=== PATIENT | female | born 1945 | race Caucasian/White ===

== ENCOUNTER 2024-09-28 13:54 | Emergency (ER) | payer MEDICARE, OTHER, SELFPAY ==
[2024-09-28] VITALS (7 sets, daily range): BP systolic 101–141; BP diastolic 53–72; PULSE 72–87; RESP 13–20; TEMP 36.8–37.1; O2SAT 95–98; BMI 23.6
--- NOTE | 2024-09-28 14:55 | CT_ITS ---
PROCEDURE INFORMATION: Exam: CTA Abdomen and Pelvis With Contrast Exam date and time: 09/28/2024 4:50 PM Age: 79 years old Clinical indication: Other: Melena, abdominal pain, diarrhea, n/v TECHNIQUE: Imaging protocol: Computed tomographic angiography of the abdomen and pelvis with contrast. Exam focused on the arteries. 3D rendering (Not supervised by radiologist): MIP and/or 3D reconstructed images were created by the technologist. Radiation optimization: All CT scans at this facility use at least one of these dose optimization techniques: automated exposure control; mA and/or kV adjustment per patient size (includes targeted exams where dose is matched to clinical indication); or iterative reconstruction. Contrast material: ISO 370; Contrast volume: 80 ml; Contrast route: INTRAVENOUS (IV); COMPARISON: No relevant prior studies available. FINDINGS: Limitations: Evaluation of the pelvis is very limited by streak artifact. Aorta: No aortic aneurysm. No aortic dissection. Celiac trunk and mesenteric arteries: No occlusion or significant stenosis. Renal arteries: No occlusion or significant stenosis. Right iliac arteries: No occlusion or significant stenosis. Left iliac arteries: No occlusion or significant stenosis. Liver: No mass. Gallbladder and biliary ducts: Cholecystectomy. Mild intra-and extrahepatic biliary ductal dilation is most likely the sequela of prior cholecystectomy in the absence of clinical symptomatology. If warranted, consider correlation with biliary levels. Pancreas: Unremarkable. No mass. No ductal dilation. Spleen: Unremarkable. No splenomegaly. Adrenal glands: 1.6 cm left adrenal nodule.In a patient with no cancer history, consider 12 month follow-up adrenal CT. (Reference: [facility]) Kidneys and ureters: Subcentimeter right renal hypodense lesions are too small to characterize but most probably benign representing cysts. Consider correlation with nonemergent ultrasound. Subcentimeter left renal hypodense lesions are too small to characterize but most probably benign representing cysts. Consider correlation with nonemergent ultrasound. Stomach and bowel: Limited evaluation of the rectum due to streak artifact. However, I do question a degree submucosal edema and mucosal hyperenhancement as could be seen with proctitis. No other significant bowel wall thickening or evidence of bowel obstruction. Appendix: No evidence of appendicitis. Intraperitoneal space: Unremarkable. No free air. No significant fluid collection. Lymph nodes: Unremarkable. No enlarged lymph nodes. Urinary bladder: Unremarkable. No mass. Reproductive: Limited evaluation of the reproductive organs by streak artifact. Bones/joints: Complete bilateral hip arthroplasties. No complications. Moderate multilevel degenerative changes of the spine. Soft tissues: Unremarkable. IMPRESSION: 1. Limited evaluation of the rectum due to streak artifact. However, I do question a degree submucosal edema and mucosal hyperenhancement as could be seen with proctitis. 2. No other evidence to explain the patient's symptoms. Specifically, no evidence for active GI bleeding. REFERENCES: Ashley WEBBER, et al. Management of Incidental Adrenal Masses: A White Paper of the ACR Incidental Findings Committee. J Am Kenneth Radiol. 2017;14(8):8956-3473.
--- NOTE | 2024-09-28 14:59 | ED_ITS ---
<Statement entered by Krissy Obregon DO - 09/28/24 23:11> I was consulted by the SHAMIR, and we discussed the complexity of the problems being addressed. I approved the treatment and management plan for this patient's care in the emergency department, thus performing a substantive portion of the medical decision making. Krissy Obregon DO Discharge Plan Disposition Patient Disposition: Home, Self-Care Condition: Good Prescriptions Prescriptions: New ondansetron 4 mg tablet,disintegrating 4 mg PO Q6H PRN (Reason: nausea and vomiting) Qty: 20 0RF No Action naltrexone 4.5 mg capsule 4.5 mg PO AM diclofenac potassium 50 mg tablet 50 mg PO DAILY omeprazole 20 mg capsule,delayed release(DR/EC) 20 mg PO DAILY escitalopram oxalate 5 mg tablet 5 mg PO HS folic acid 1 mg tablet 1 mg PO DAILY lidocaine 5 % adhesive patch,medicated 1 patch topical DAILY PRN (Reason: Pain (Scale Score 4-6)) Rx Instructions: leave on most painful area for up to 12 hrs fluticasone furoate 50 mcg/actuation blister with device 1 inh inhalation HS PRN (Reason: Asthma) azelastine 137 mcg (0.1 %) spray,non-aerosol 1 spray intranasal BID Rx Instructions: administer into each nostril cyclosporine 0.05 % dropperette 1 drp ophthalmic (eye) Q12H ezetimibe 10 mg tablet 10 mg PO .TWICE A WEEK progesterone micronized 100 mg capsule 175 mg PO HS Rx Instructions: off 7 days; repeat cycle Referrals Follow up/Referrals: Aric Romero II, MD [Staff Physician] - See instructions Provider,MD Keya [Primary Care Provider] - See instructions Activity Restrictions/Add. Instructions Additional Instructions/Restrictions: Please return to the emergency department for any worsening signs or symptoms, please utilize antinausea medicine as needed, please follow-up with GI physician next week, please continue take all medication as prescribed. Clinical Impressions Clinical Impression: History of melena, Nausea, Diarrhea Instructions Patient Instructions: DI for Acute Abdominal Pain Print Language Print Language: Frisian Discharge ED Provider: Sudarhsan Mariscal General Adult HPI <OVI Horne - Last Filed: 09/28/24 18:57> General Chief complaint: Abdominal Pain Stated complaint: Sent by [facility] care for black stool constipation Time Seen by Provider: 09/28/24 14:45 Mode of Arrival: Ambulatory Source of Information: Patient Description of Symptoms (Recalled from ER Triage Doc. by RN): pt is here for n/v/d and abd pain since tuesday, sent by ana verma History of Present Illness HPI narrative: 79-year-old female presents to the emergency department for a 3 to 4-day history of lower abdominal pain bloating , diarrhea that she describes as black she was seen by outside provider today who recomened patient come to the emerged part for further evaluation, patient denies any fever chills chest pain shortness of breath, does admit to some decreased urination/nocturia at times, she admits to nausea, no real episodes of vomiting but the patient states that she will make myself vomit with my fingers because I think it needs to come up , she denies any hematemesis, admits to what sounds like melena, denies any hematochezia, states that she has had recent vaginal biopsy for some vaginal bleeding , she was found to have benign lesion, follows with [facility] for this, she is a social drinker, but denies any other drugs or tobacco use, other past medical history consistent with Sjrogens disease, on monoclonal antibody therapy/infusions, anxiety/depression, hyperlipidemia, GERD, osteoarthritis, initial triage vitals unremarkable. Onset (ago): day(s) Related Data Home Medications ?Medication ?Instructions ?Recorded ?Confirmed azelastine 137 mcg (0.1 %) nasal 1 spray intranasal BID 09/28/24 09/28/24 spray cyclosporine 0.05 % eye drops in a 1 drp ophthalmic (eye) Q12H 09/28/24 09/28/24 dropperette diclofenac potassium 50 mg tablet 50 mg PO DAILY 09/28/24 09/28/24 escitalopram oxalate 5 mg tablet 5 mg PO HS 09/28/24 09/28/24 ezetimibe 10 mg tablet 10 mg PO .TWICE A WEEK 09/28/24 09/28/24 fluticasone furoate 50 1 inh inhalation HS PRN Asthma 09/28/24 09/28/24 mcg/actuation blister powder for inhalation folic acid 1 mg tablet 1 mg PO DAILY 09/28/24 09/28/24 lidocaine 5 % topical patch 1 patch topical DAILY PRN Pain 09/28/24 09/28/24 (Scale Score 4-6) naltrexone 4.5 mg capsule 4.5 mg PO AM 09/28/24 09/28/24 omeprazole 20 mg capsule,delayed 20 mg PO DAILY 09/28/24 09/28/24 release progesterone micronized 100 mg 175 mg PO HS 09/28/24 09/28/24 capsule Previous Rx's ?Medication ?Instructions ?Recorded ondansetron 4 mg disintegrating 4 mg PO Q6H PRN nausea and 09/28/24 tablet vomiting #20 tabs Allergies Allergy/AdvReac Type Severity Reaction Status Date / Time cyclobenzaprine (From Allergy Verified 09/28/24 13:10 Flexeril) pneumococcal vaccine (From Allergy Verified 09/28/24 13:10 Pneumovax-23) [facility] <OVI Horne - Last Filed: 09/28/24 18:57> [facility] Disclaimer: The information contained in this section may have been updated after the patient was seen, as this information can be updated by other users. Social History (Updated 09/28/24 @ 18:57 by OVI Horne) Smoking Status: Never smoker alcohol intake: current current occupational status: retired Travel in the last 8 weeks?: None Have you lived/traveled outside [place] in past 30 days?: No Contact w/someone who lives/traveled outside US past 30 days?: No Exposure to someone with infectious disease in past 14 days?: No Do you have a fever (greater than 100.4 F or 38 C)?: No Have you tested positive for COVID-19?: No Exposed to someone with COVID-19 in past 14 days?: No Do you have a sore throat?: No Do you have a cough?: No Do you have any weakness?: No Do you have any diarrhea?: No Are you experiencing any unusual bleeding?: No Do you have any muscle aches/pain?: No Do you have any abdominal pain?: No Are you experiencing loss of taste or smell?: No <OVI Horne - Last Filed: 09/28/24 18:57> ROS Obtained: Yes All systems reviewed & no additional complaints except as documented Physical Exam <OVI Horne - Last Filed: 09/28/24 18:57> General General appearance: alert and in no apparent distress Head Head exam: atraumatic and normocephalic Eye Eye exam: Present PERRL and EOMI ENT ENT exam: Present mucous membranes moist Neck Neck exam: Present normal inspection Chest Chest inspection: Present normal inspection and symmetric chest wall rise Respiratory Respiratory exam: Present normal lung sounds bilaterally; Absent respiratory distress Cardiovascular Cardiovascular exam: Present regular rate and normal rhythm Abdominal Exam Abdominal exam: Present soft; Absent tenderness, guarding, rebound or rigidity Rectal Exam Rectal exam: Present normal rectal tone, black stool and hemorrhoids comment: I along with (female) nurse safemaker performed rectal exam, patient has normal rectal tone, there is obvious external hemorrhoid present around 12 PM, no active bleeding, there is some mild black appearing stool, will send off Hemoccult. Extremities Exam Extremities exam: Present normal inspection Neurological Exam Neurological exam: Present alert and oriented X3 Psychiatric Psychiatric exam: Present normal affect Skin Skin exam: Present warm and dry Medical Decision Making <OVI Horne - Last Filed: 09/28/24 18:57> Medical Records Medical records reviewed: Yes I reviewed the patient's medical records. Screening: Per USPSTF and CDC recommendations, given the prevalence of disease in our region, it is our hospital?s policy to screen for HIV and viral Hepatitis for all patients aged 18 and over and those with ongoing risk factors. Tutu Inquiry Pt receiving controlled substance: No Tutu was queried for this patient: No Vital Signs: 09/28/24 14:49 09/28/24 15:01 09/28/24 15:18 Temperature 98.2 F Temperature Source Oral Pulse Rate 76 76 Pulse Rate [Left Radial] 87 Respiratory Rate 20 Blood Pressure 114/71 120/64 Blood Pressure [Right Arm] 141/72 H Blood Pressure Mean 82 Blood Pressure Mean [Right Arm] 95 Blood Pressure Source Blood Pressure Position 02 Sat by Pulse Oximetry 95 96 98 Oxygen Delivery Method Room Air Room Air Room Air 09/28/24 16:00 09/28/24 17:08 09/28/24 18:00 Temperature Temperature Source Pulse Rate 72 83 75 Pulse Rate [Left Radial] Respiratory Rate 13 16 15 Blood Pressure 101/53 L 119/64 105/55 L Blood Pressure [Right Arm] Blood Pressure Mean Blood Pressure Mean [Right Arm] Blood Pressure Source Blood Pressure Position 02 Sat by Pulse Oximetry 96 97 97 Oxygen Delivery Method Room Air Room Air Room Air 09/28/24 19:00 Temperature 98.8 F Temperature Source Oral Pulse Rate 75 Pulse Rate [Left Radial] Respiratory Rate 20 Blood Pressure 105/55 L Blood Pressure [Right Arm] Blood Pressure Mean Blood Pressure Mean [Right Arm] Blood Pressure Source Automatic Cuff Blood Pressure Position Sitting 02 Sat by Pulse Oximetry Oxygen Delivery Method Room Air Lab Data Lab Results 09/28/24 15:15: WBC 12.6 H, RBC 4.03 L, Hgb 13.2, Hct 38.4, MCV 95.3, MCH 32.8 H , MCHC 34.4, RDW 12.7, Plt Count 242, MPV 9.8, Neut % (Auto) 78.4, Lymph % (Auto) 6.2 L, [place] % (Auto) 14.6 H, Eos % (Auto) 0.2, Baso % (Auto) 0.2, Neut # (Auto) 9.9 H, Lymph # (Auto) 0.8, [place] # (Auto) 1.8 H, Eos # (Auto) 0.0, Baso # (Auto) 0.0, Total Counted 100, Neutrophils % (Manual) 74, Lymphocytes % (Manual) 7 L, Atypical Lymphs % 1.0, Monocytes % (Manual) 16 H, Eosinophils % (Manual) 2, Platelet Estimate Normal, RBC Morphology Normal, PT 10.6, INR 0.95, APTT 27.2, S odium 129 L, Potassium 3.7, Chloride 98, Carbon Dioxide 26, Anion Gap 8.7, BUN 31 H, Creatinine 0.90, Estimated Creat Clear 44, Estimated GFR 61, Est GFR ( Amer) 73, Glucose 116 H, Lactate 0.6 L, Calcium 8.3 L, Total Bilirubin 0.3, AST 30, ALT 19, Alkaline Phosphatase 63, Total Protein 6.6, Albumin 4.0, Globulin 2.6, Albumin/Globulin Ratio 1.5, Lipase 75, Plasma/Serum Alcohol < 10, Blood Type O Negative, Antibody Screen Negative 09/28/24 15:49: Urine Color Yellow, Urine Appearance Clear, Urine pH 6.0, Ur Specific [place] 1.015, Urine Protein Trace, Urine Glucose (UA) Negative, Urine Ketones 2+, Urine Blood 2+ A, Urine Nitrate Negative, Urine Bilirubin Negative, Urine Urobilinogen 0.2, Ur Leukocyte Esterase 1+ A, Urine RBC 3-5, Urine WBC 5- 10, Ur Squamous Epith Cells 10-20, Urine Bacteria Trace, Hyaline Casts 3-5 09/28/24 17:06: Stool Occult Blood Positive A 09/28/24 15:15 09/28/24 15:15 Orders (Tests/Meds): ED MEDICATIONS Discontinued Medications Generic Name Dose Route Start Last Admin Trade Name Freq PRN Reason Stop Dose Admin Pantoprazole Sodium 80 mg/ 100 mls @ 10 mls/hr 09/28/24 15:00 09/28/24 15:44 Sodium Chloride IV 10/01/24 14:59 10 mls/hr .Q10H ROMELIA Administration Iopamidol 80 ml 09/28/24 16:53 09/28/24 16:55 Iopamidol-370 (76%);100ml Bottle IV 09/28/24 16:54 80 ml ONCE ONE Administration Ondansetron HCl 4 mg 09/28/24 18:56 09/28/24 19:00 Ondansetron 4mg/2ml Vial IV 09/28/24 18:57 4 mg ONCE ONE Administration Sodium Chloride 10 ml 09/28/24 16:53 Sodium Chloride 0.9% 10ml Syr (Rad Only) IV 10/28/24 16:52 NEEDED PRN Maintain IV Site Sodium Chloride 50 ml 09/28/24 16:53 09/28/24 16:55 0.9 % Sodium Chloride 50 Ml Vial IV 09/28/24 16:54 50 ml ONCE ONE Administration ORDERS Category Date Time Status Type and Screen Stat BBK 09/28/24 15:[address] angio abd/pel - GI Bleed Stat Cat Scan 09/28/24 14:55 Completed Complete Blood Count Auto Diff Stat Lab 09/28/24 15:15 Completed Comprehensive Metabolic Panel Stat Lab 09/28/24 15:15 Completed Ethanol [Ethyl Alcohol] Stat Lab 09/28/24 15:15 Completed Lactic Acid Stat Lab 09/28/24 15:15 Completed Lipase Stat Lab 09/28/24 15:15 Completed Occult Blood,Stool Stat Lab 09/28/24 17:06 Completed PT INR [Prothrombin Time INR] Stat Lab 09/28/24 15:15 Completed PTT [Activated Partial Thrombo Time] Stat Lab 09/28/24 15:15 Completed Urinalysis and Microscopic Stat Lab 09/28/24 15:49 Completed Urine Culture Stat Micro 09/28/24 15:49 Results Medical Decision Narrative: 79-year-old female presents the emergency department with concern of melena diarrhea abdominal pain nausea and vomiting differential diagnose include but limited, acute GI bleed, GERD, gastritis, diverticulitis, malignancy, inflammatory bowel disease, colitis, ileitis, gastroenteritis, bowel obstruction, among others. Discussed patient case with attending physician Dr. Obregon Obtain basic laboratory studies, EKG type and screen, ethyl alcohol level, urinalysis, coagulation studies, lactic acid level lipase level, fecal occult, CTA abdomen pelvis with with without contrast, will give 80 mg IV Protonix. CBC is noted for mild leukocytosis 12.6, hemoglobin hematocrit within normal limits. Coags within normal limits There is mild hyponatremia noted at 129, BUN is mildly elevated at 31 Urinalysis notable 1+ leukocyte Estrace, negative nitrites 2+ hematuria. Alcohol level within normal Blood type is O- Positive fecal occult. I reviewed the patient's CTA abdomen pelvis with and without contrast, with the corresponding radiologic report, limited evaluation of the rectum due to streak artifact however I do question a degree of submucosal edema and mucosal hyperenhancement as could be seen with proctitis, no other evidence to explain patient's symptoms specifically no evidence for active GI bleeding. I discussed this patient's case with Dr. Romero at 6:42 PM the on-call GI physician, he recommends follow-up in the outpatient clinic next week since patient is hemodynamically stable and hemoglobin hematocrit are stable for melena and positive Hemoccult. I discussed this with the patient and at the bedside patient and family agree with current treatment plan/discharge plan. Will give patient dose of 4 mg IV Zofran for nausea prior to DC. Patient will return to the emerged department for any worsening signs or symptoms. Patient and family voiced understanding of the current treatment plan/discharge plan. 4 milligram p.o. Zofran as needed for nausea and vomiting. <Krissy Obregon, DO - Last Filed: 09/28/24 16:31> Vital Signs: 09/28/24 14:49 09/28/24 15:01 09/28/24 15:18 Temperature 98.2 F Temperature Source Oral Pulse Rate 76 76 Pulse Rate [Left Radial] 87 Respiratory Rate 20 Blood Pressure 114/71 120/64 Blood Pressure [Right Arm] 141/72 H Blood Pressure Mean 82 Blood Pressure Mean [Right Arm] 95 Blood Pressure Source Blood Pressure Position 02 Sat by Pulse Oximetry 95 96 98 Oxygen Delivery Method Room Air Room Air Room Air 09/28/24 16:00 09/28/24 17:08 09/28/24 18:00 Temperature Temperature Source Pulse Rate 72 83 75 Pulse Rate [Left Radial] Respiratory Rate 13 16 15 Blood Pressure 101/53 L 119/64 105/55 L Blood Pressure [Right Arm] Blood Pressure Mean Blood Pressure Mean [Right Arm] Blood Pressure Source Blood Pressure Position 02 Sat by Pulse Oximetry 96 97 97 Oxygen Delivery Method Room Air Room Air Room Air 09/28/24 19:00 Temperature 98.8 F Temperature Source Oral Pulse Rate 75 Pulse Rate [Left Radial] Respiratory Rate 20 Blood Pressure 105/55 L Blood Pressure [Right Arm] Blood Pressure Mean Blood Pressure Mean [Right Arm] Blood Pressure Source Automatic Cuff Blood Pressure Position Sitting 02 Sat by Pulse Oximetry Oxygen Delivery Method Room Air Lab Data Lab Results 09/28/24 15:15: WBC 12.6 H, RBC 4.03 L, Hgb 13.2, Hct 38.4, MCV 95.3, MCH 32.8 H , MCHC 34.4, RDW 12.7, Plt Count 242, MPV 9.8, Neut % (Auto) 78.4, Lymph % (Auto) 6.2 L, [place] % (Auto) 14.6 H, Eos % (Auto) 0.2, Baso % (Auto) 0.2, Neut # (Auto) 9.9 H, Lymph # (Auto) 0.8, [place] # (Auto) 1.8 H, Eos # (Auto) 0.0, Baso # (Auto) 0.0, Total Counted 100, Neutrophils % (Manual) 74, Lymphocytes % (Manual) 7 L, Atypical Lymphs % 1.0, Monocytes % (Manual) 16 H, Eosinophils % (Manual) 2, Platelet Estimate Normal, RBC Morphology Normal, PT 10.6, INR 0.95, APTT 27.2, S odium 129 L, Potassium 3.7, Chloride 98, Carbon Dioxide 26, Anion Gap 8.7, BUN 31 H, Creatinine 0.90, Estimated Creat Clear 44, Estimated GFR 61, Est GFR ( Amer) 73, Glucose 116 H, Lactate 0.6 L, Calcium 8.3 L, Total Bilirubin 0.3, AST 30, ALT 19, Alkaline Phosphatase 63, Total Protein 6.6, Albumin 4.0, Globulin 2.6, Albumin/Globulin Ratio 1.5, Lipase 75, Plasma/Serum Alcohol < 10, Blood Type O Negative, Antibody Screen Negative 09/28/24 15:49: Urine Color Yellow, Urine Appearance Clear, Urine pH 6.0, Ur Specific [place] 1.015, Urine Protein Trace, Urine Glucose (UA) Negative, Urine Ketones 2+, Urine Blood 2+ A, Urine Nitrate Negative, Urine Bilirubin Negative, Urine Urobilinogen 0.2, Ur Leukocyte Esterase 1+ A, Urine RBC 3-5, Urine WBC 5- 10, Ur Squamous Epith Cells 10-20, Urine Bacteria Trace, Hyaline Casts 3-5 09/28/24 17:06: Stool Occult Blood Positive A Orders (Tests/Meds): ED MEDICATIONS Discontinued Medications Generic Name Dose Route Start Last Admin Trade Name Freq PRN Reason Stop Dose Admin Pantoprazole Sodium 80 mg/ 100 mls @ 10 mls/hr 09/28/24 15:00 09/28/24 15:44 Sodium Chloride IV 10/01/24 14:59 10 mls/hr .Q10H ROMELIA Administration Iopamidol 80 ml 09/28/24 16:53 09/28/24 16:55 Iopamidol-370 (76%);100ml Bottle IV 09/28/24 16:54 80 ml ONCE ONE Administration Ondansetron HCl 4 mg 09/28/24 18:56 09/28/24 19:00 Ondansetron 4mg/2ml Vial IV 09/28/24 18:57 4 mg ONCE ONE Administration Sodium Chloride 10 ml 09/28/24 16:53 Sodium Chloride 0.9% 10ml Syr (Rad Only) IV 10/28/24 16:52 NEEDED PRN Maintain IV Site Sodium Chloride 50 ml 09/28/24 16:53 09/28/24 16:55 0.9 % Sodium Chloride 50 Ml Vial IV 09/28/24 16:54 50 ml ONCE ONE Administration ORDERS Category Date Time Status Type and Screen Stat BBK 09/28/24 15:[address] angio abd/pel - GI Bleed Stat Cat Scan 09/28/24 14:55 Completed Complete Blood Count Auto Diff Stat Lab 09/28/24 15:15 Completed Comprehensive Metabolic Panel Stat Lab 09/28/24 15:15 Completed Ethanol [Ethyl Alcohol] Stat Lab 09/28/24 15:15 Completed Lactic Acid Stat Lab 09/28/24 15:15 Completed Lipase Stat Lab 09/28/24 15:15 Completed Occult Blood,Stool Stat Lab 09/28/24 17:06 Completed PT INR [Prothrombin Time INR] Stat Lab 09/28/24 15:15 Completed PTT [Activated Partial Thrombo Time] Stat Lab 09/28/24 15:15 Completed Urinalysis and Microscopic Stat Lab 09/28/24 15:49 Completed Urine Culture Stat Micro 09/28/24 15:49 Results ECG Data Tracing #1: I reviewed this ECG and interpreted as documented below: Normal sinus rhythm with a ventricular rate of [address] changes concerning for ischemia. Normal intervals ECG initial impression date: 09/28/24 ECG initial impression time: 16:28 Medical Decision Narrative: 79-year-old female presents the emergency department with concern of melena diarrhea abdominal pain nausea and vomiting differential diagnose include but limited, acute GI bleed, GERD, gastritis, diverticulitis, malignancy, inflammatory bowel disease, colitis, ileitis, gastroenteritis, bowel obstruction, among others. Obtain basic laboratory studies, EKG type and screen, ethyl alcohol level, urinalysis, coagulation studies, lactic acid level lipase level, fecal occult, CTA abdomen pelvis with with without contrast, will give 80 mg IV Protonix. CBC is noted for mild leukocytosis 12.6 Coags within normal limits There is mild hyponatremia noted at 129, BUN is mildly elevated at 31 Urinalysis notable 1+ leukocyte Estrace, negative nitrites 2+ hematuria. <Sudarshan Mariscal MD - Last Filed: 09/29/24 06:55> Vital Signs: 09/28/24 14:49 09/28/24 15:01 09/28/24 15:18 Temperature 98.2 F Temperature Source Oral Pulse Rate 76 76 Pulse Rate [Left Radial] 87 Respiratory Rate 20 Blood Pressure 114/71 120/64 Blood Pressure [Right Arm] 141/72 H Blood Pressure Mean 82 Blood Pressure Mean [Right Arm] 95 Blood Pressure Source Blood Pressure Position 02 Sat by Pulse Oximetry 95 96 98 Oxygen Delivery Method Room Air Room Air Room Air 09/28/24 16:00 09/28/24 17:08 09/28/24 18:00 Temperature Temperature Source Pulse Rate 72 83 75 Pulse Rate [Left Radial] Respiratory Rate 13 16 15 Blood Pressure 101/53 L 119/64 105/55 L Blood Pressure [Right Arm] Blood Pressure Mean Blood Pressure Mean [Right Arm] Blood Pressure Source Blood Pressure Position 02 Sat by Pulse Oximetry 96 97 97 Oxygen Delivery Method Room Air Room Air Room Air 09/28/24 19:00 Temperature 98.8 F Temperature Source Oral Pulse Rate 75 Pulse Rate [Left Radial] Respiratory Rate 20 Blood Pressure 105/55 L Blood Pressure [Right Arm] Blood Pressure Mean Blood Pressure Mean [Right Arm] Blood Pressure Source Automatic Cuff Blood Pressure Position Sitting 02 Sat by Pulse Oximetry Oxygen Delivery Method Room Air Lab Data Lab Results 09/28/24 15:15: WBC 12.6 H, RBC 4.03 L, Hgb 13.2, Hct 38.4, MCV 95.3, MCH 32.8 H , MCHC 34.4, RDW 12.7, Plt Count 242, MPV 9.8, Neut % (Auto) 78.4, Lymph % (Auto) 6.2 L, [place] % (Auto) 14.6 H, Eos % (Auto) 0.2, Baso % (Auto) 0.2, Neut # (Auto) 9.9 H, Lymph # (Auto) 0.8, [place] # (Auto) 1.8 H, Eos # (Auto) 0.0, Baso # (Auto) 0.0, Total Counted 100, Neutrophils % (Manual) 74, Lymphocytes % (Manual) 7 L, Atypical Lymphs % 1.0, Monocytes % (Manual) 16 H, Eosinophils % (Manual) 2, Platelet Estimate Normal, RBC Morphology Normal, PT 10.6, INR 0.95, APTT 27.2, S odium 129 L, Potassium 3.7, Chloride 98, Carbon Dioxide 26, Anion Gap 8.7, BUN 31 H, Creatinine 0.90, Estimated Creat Clear 44, Estimated GFR 61, Est GFR ( Amer) 73, Glucose 116 H, Lactate 0.6 L, Calcium 8.3 L, Total Bilirubin 0.3, AST 30, ALT 19, Alkaline Phosphatase 63, Total Protein 6.6, Albumin 4.0, Globulin 2.6, Albumin/Globulin Ratio 1.5, Lipase 75, Plasma/Serum Alcohol < 10, Blood Type O Negative, Antibody Screen Negative 09/28/24 15:49: Urine Color Yellow, Urine Appearance Clear, Urine pH 6.0, Ur Specific [place] 1.015, Urine Protein Trace, Urine Glucose (UA) Negative, Urine Ketones 2+, Urine Blood 2+ A, Urine Nitrate Negative, Urine Bilirubin Negative, Urine Urobilinogen 0.2, Ur Leukocyte Esterase 1+ A, Urine RBC 3-5, Urine WBC 5- 10, Ur Squamous Epith Cells 10-20, Urine Bacteria Trace, Hyaline Casts 3-5 09/28/24 17:06: Stool Occult Blood Positive A Orders (Tests/Meds): ED MEDICATIONS Discontinued Medications Generic Name Dose Route Start Last Admin Trade Name Freq PRN Reason Stop Dose Admin Pantoprazole Sodium 80 mg/ 100 mls @ 10 mls/hr 09/28/24 15:00 09/28/24 15:44 Sodium Chloride IV 10/01/24 14:59 10 mls/hr .Q10H ROMELIA Administration Iopamidol 80 ml 09/28/24 16:53 09/28/24 16:55 Iopamidol-370 (76%);100ml Bottle IV 09/28/24 16:54 80 ml ONCE ONE Administration Ondansetron HCl 4 mg 09/28/24 18:56 09/28/24 19:00 Ondansetron 4mg/2ml Vial IV 09/28/24 18:57 4 mg ONCE ONE Administration Sodium Chloride 10 ml 09/28/24 16:53 Sodium Chloride 0.9% 10ml Syr (Rad Only) IV 10/28/24 16:52 NEEDED PRN Maintain IV Site Sodium Chloride 50 ml 09/28/24 16:53 09/28/24 16:55 0.9 % Sodium Chloride 50 Ml Vial IV 09/28/24 16:54 50 ml ONCE ONE Administration ORDERS Category Date Time Status Type and Screen Stat BBK 09/28/24 15:[address] angio abd/pel - GI Bleed Stat Cat Scan 09/28/24 14:55 Completed Complete Blood Count Auto Diff Stat Lab 09/28/24 15:15 Completed Comprehensive Metabolic Panel Stat Lab 09/28/24 15:15 Completed Ethanol [Ethyl Alcohol] Stat Lab 09/28/24 15:15 Completed Lactic Acid Stat Lab 09/28/24 15:15 Completed Lipase Stat Lab 09/28/24 15:15 Completed Occult Blood,Stool Stat Lab 09/28/24 17:06 Completed PT INR [Prothrombin Time INR] Stat Lab 09/28/24 15:15 Completed PTT [Activated Partial Thrombo Time] Stat Lab 09/28/24 15:15 Completed Urinalysis and Microscopic Stat Lab 09/28/24 15:49 Completed Urine Culture Stat Micro 09/28/24 15:49 Results Medical Decision Narrative: 79-year-old female presents the emergency department with concern of melena diarrhea abdominal pain nausea and vomiting differential diagnose include but limited, acute GI bleed, GERD, gastritis, diverticulitis, malignancy, inflammatory bowel disease, colitis, ileitis, gastroenteritis, bowel obstruction, among others. Discussed patient case with attending physician Dr. Obregon Obtain basic laboratory studies, EKG type and screen, ethyl alcohol level, urinalysis, coagulation studies, lactic acid level lipase level, fecal occult, CTA abdomen pelvis with with without contrast, will give 80 mg IV Protonix. CBC is noted for mild leukocytosis 12.6, hemoglobin hematocrit within normal limits. Coags within normal limits There is mild hyponatremia noted at 129, BUN is mildly elevated at 31 Urinalysis notable 1+ leukocyte Estrace, negative nitrites 2+ hematuria. Alcohol level within normal Blood type is O- Positive fecal occult. I reviewed the patient's CTA abdomen pelvis with and without contrast, with the corresponding radiologic report, limited evaluation of the rectum due to streak artifact however I do question a degree of submucosal edema and mucosal hyperenhancement as could be seen with proctitis, no other evidence to explain patient's symptoms specifically no evidence for active GI bleeding. I discussed this patient's case with Dr. Romero at 6:42 PM the on-call GI physician, he recommends follow-up in the outpatient clinic next week since patient is hemodynamically stable and hemoglobin hematocrit are stable for melena and positive Hemoccult. I discussed this with the patient and at the bedside patient and family agree with current treatment plan/discharge plan. Will give patient dose of 4 mg IV Zofran for nausea prior to DC. Patient will return to the emerged department for any worsening signs or symptoms. Patient and family voiced understanding of the current treatment plan/discharge plan. 4 milligram p.o. Zofran as needed for nausea and vomiting. I was consulted by the SHAMIR, and we discussed the complexity of the problems being addressed. I approved the treatment and management plan for this patient's care in the Emergency Department, thus performing a substantive portion of the medical decision making. Sudarshan Mariscal MD Critical Care <OVI Horne - Last Filed: 09/28/24 18:57> Critical Care Time Critical Care Time: No
[2024-09-28 15:28] LABS: Basophils % 0.2 % (0.1-2.0); Eosinophils % 0.2 % (0.1-12.0); Hematocrit 38.4 % (37.0-47.0); Hemoglobin 13.2 g/dL (12.2-16.2); Immature Granulocytes # 0.05 10^3uL; Immature Granulocytes % 0.4 %; Lymphocytes # 0.8 K/mm3 (0.7-4.5); Lymphocytes % 6.2 % (10-50); Mean Corpuscular HGB Conc 34.4 g/dL (31.8-35.4); Mean Corpuscular Hemoglobin 32.8 pg (27.0-31.2); Mean Corpuscular Volume 95.3 fl (81-99); Mean Platelet Volume 9.8 fl (7.4-10.4); Monocytes # 1.8 K/mm3 (0.1-1.0); Monocytes % 14.6 % (1.7-9.3); Neutrophils # 9.9 K/mm3 (1.8-7.8); Neutrophils % 78.4 % (37.0-80.0); Nucleated Red Blood Cells # 0 10^3/uL; Nucleated Red Blood Cells % 0 %; Platelet Count 242 K/mm3 (142-424); Red Blood Count 4.03 M/mm3 (4.20-5.40); Red Cell Distribution Width 12.7 % (11.5-17.5); Red Cell Distribution Width-SD 44.9 fL; White Blood Count 12.6 K/mm3 (4.8-10.8)
[2024-09-28 15:37] LABS: MANUAL DIFFERENTIAL MANUAL DIFFERENTIAL (MANUAL DIFF)
[2024-09-28 15:38] LABS: Chloride 98 mmol/L (98-107); Potassium 3.7 mmoL/L (3.5-5.1); Sodium 129 mmol/L (136-145)
[2024-09-28 15:40] LABS: Alanine Aminotransferase 19 U/L (12-78); Anion Gap 8.7 mEq/L (5-15); Aspartate Amino Transferase 30 U/L (14-36); Blood Urea Nitrogen 31 mg/dl (7-17); Carbon Dioxide 26 mmol/L (22.0-30.0); Creatinine Clearance Estimated 44 mL/min (50-200); Estimated Glomerular Filt Rate 61 ml/min (>60); GFR (African American) 73 ML/MIN (>60)
[2024-09-28 15:41] LABS: Activated Partial Thrombo Time 27.2 seconds (22.8-30.6); Albumin/Globulin Ratio 1.5 (1.1-1.8); Alkaline Phosphatase 63 U/L (38-126); Bilirubin,Total 0.3 mg/dl (0.2-1.3); Calcium 8.3 mg/dl (8.4-10.2); Globulin 2.6 g/dL (1.3-3.2); Glucose 116 mg/dl (74-100); INR 0.95 (0.9-1.1); Lactic Acid 0.6 mmol/L (0.7-2.1); Lipase 75 U/L (23-300); Prothrombin Time 10.6 seconds (10.1-12.5); Total Protein,Serum 6.6 g/dl (6.3-8.2)
[2024-09-28] MEDS: PANTOPRAZOLE SODIUM 80 MG in 0.9 % SODIUM CHLORIDE 100 ML 10 MG IV (15:44)
[2024-09-28 15:55] LABS: Microscopic, Urine URINE MICROSCOPIC (MICROSCOPIC)
[2024-09-28 16:19] LABS: Appearance,Urine CLEAR (Clear); Bilirubin,Urine Negative (Negative); Blood, Urine 2+ (Negative); Color,Urine YELLOW (Yellow); Glucose,Urine (UA) Negative (Negative); Ketones,Urine 2+ (Negative); Leukocyte Esterase,Urine 1+ (Negative); Nitrate,Urine Negative (Negative); Protein,Urine TRACE (Negative); Specific Gravity, Urine 1.015 (1.005-1.030); Urobilinogen,Urine 0.2 EU/dl (0.2)
--- NOTE | 2024-09-28 16:25 | ECG_ITS ---
APPROVED REPORT Exam: Resting ECG HR:70 bpm ECG Measurements Heart Rate 70 AXES CA 150 P 45 QRSd 88 QRS 16 QT 375 T 46 QTc 396 Conclusion SINUS RHYTHM NORMAL ECG No STEMI Electronically signed by : SADAF LATHAM, 09/28/2024 23:37:47
[2024-09-28 16:29] LABS: Bacteria,Urine Trace /lpf
[2024-09-28 16:32] LABS: Ethyl Alcohol < 10 mg/dl (0-10)
[2024-09-28] MEDS: IOPAMIDOL-370 (76%);100ML BOTTLE 80 ML IV (16:55)
[2024-09-28] MEDS: 0.9 % SODIUM CHLORIDE 50 ML VIAL IV (16:55)
[2024-09-28 17:22] LABS: Eosinophils % 2 % (0-3); Lymphocytes % 7 % (10-50); Monocytes % 16 % (2-9); Neutrophils % 74 % (42-76); Platelet Estimate Normal; RBC Morphology Normal; Total Cells Counted 100
[2024-09-28 17:25] LABS: Occult Blood,Stool Positive (Negative)
[2024-09-28] MEDS: ONDANSETRON 4MG/2ML VIAL 4 MG IV (19:00)
--- NOTE | 2024-10-02 11:00 | PC.NURSE ---
URINE CULTURE DISCUSSED WITH JIMMY CALDERA SENT TO PHARMACY. PT NOTIFIED AND WILL INTERVENTIONAL RADIOLOGY TECHNOLOGIST RX
== END 2024-09-28 19:05 | disposition home or self-care (01) ==
PROVIDERS: Physician Assistant; Emergency Provider Emergency Medicine
DX: K92.1 Melena (principal); E87.1 Hypo-osmolality and hyponatremia; R11.0 Nausea; R19.7 Diarrhea, unspecified
CPT/HCPCS: 74174; 80053; 80320; 81001; 82272; 83605; 83690; 85007; 85025; 85027; 85610; 85730; 86850; 87086; 87088; 87186; 93005; 96365; 96366; 96375; 99285; G0328; J2405; J2470; Q9967

== ENCOUNTER 2024-10-18 07:51 | Day surgery (SDC) | payer MEDICARE, OTHER, SELFPAY ==
[2024-10-16 15:59] VITALS: BMI 24.3
[2024-10-18 08:31] VITALS: BP 134/70; PULSE 75; RESP 14; TEMP 36.7
[2024-10-18] MEDS: LACTATED RINGERS 1000ML 1,000 ML 25 ML IV (08:46)
--- NOTE | 2024-10-18 08:54 | P.PNANES_ITS ---
[facility] Disclaimer: The information contained in this section may have been updated after the patient was seen, as this information can be updated by other users. Medical History Anxiety IBS (irritable bowel syndrome) Sjogren syndrome Internal hemorrhoids GERD (gastroesophageal reflux disease) Diverticulosis Personal history of adenomatous and serrated colon polyps Outlet dysfunction constipation History of melena Surgical History Hx of cataract surgery History of ankle surgery History of hip surgery Hx of cholecystectomy Family History Other Dementia Family history non-contributory Social History Smoking Status: Never smoker alcohol intake: current substance use type: denies use current occupational status: retired Travel in the last 8 weeks?: None caffeine: Yes [facility] [place] Anesthesia Checklist Patient Identification Patient Identification: Arm Band Structural Data Admitted From: Home Planned Operative Procedure/s: EGD Consent for Planned Operative Procedure(s) Verified: Yes Verified Documents: Surgical Consent and History and Physical NPO Status Verified Time NPO: 00:00 Additional verifications Anesthesia Reactions: No Airway Assessment Mallampati Score:: Class II C-Spine Mobility Assessed: Yes TMJ Mobility Assessed: Yes Dentition: Good Dentition Neurological Assessment Level of Consciousness: Awake, Alert and Appropriate Anesthesia Plan Anesthesia Risk discussed: Yes Anesthesia Plan: Verified ASA Class: II Anesthesia Type: MAC
--- NOTE | 2024-10-18 09:31 | EXP.HP ---
History of Present Illness *Admission Date: 10/18/24 *Reason for visit:: Melena, bloating/food regurgitation and vomiting *History of present illness: Mrs. Lester is a 79-year-old female with longstanding digestive difficulties. She has been seen by several GI providers and has lived in different states. She was living in [facility] and was seeing Dr. Silva. She did have her colonoscopy with me in February 2018 and had a single polyp (serrated adenoma) removed. Her last colonoscopy with me was an February 2023 and she had marked melanosis coli but also had adenomatous polyps. The patient has struggled with incomplete defecation/outlet dysfunction constipation. She also has intermittent bowel control difficulties with seepage and sometimes has a bowel movement when she urinates. She has had moderate bloating. More recently she has developed nausea, self-induced vomiting and black stools. She admittedly states that she took Pepto-Bismol. The vomiting is new. Her last EGD she states was with Dr. Silva in 2011. She reports no heartburn or reflux. She had been on pantoprazole by Dr. Silva but this was removed. She does take 2 FiberCon daily in the morning and MiraLAX. She reports no rectal bleeding or weight loss. [facility] Disclaimer: The information contained in this section may have been updated after the patient was seen, as this information can be updated by other users. Medical History Anxiety IBS (irritable bowel syndrome) Sjogren syndrome Internal hemorrhoids GERD (gastroesophageal reflux disease) Diverticulosis Personal history of adenomatous and serrated colon polyps Outlet dysfunction constipation History of melena Surgical History Hx of cataract surgery History of ankle surgery History of hip surgery Hx of cholecystectomy Family History Other Dementia Family history non-contributory Social History (Updated 10/18/24 @ 08:55 by Nitish Brenner CRNA) Smoking Status: Never smoker alcohol intake: current substance use type: denies use current occupational status: retired Travel in the last 8 weeks?: None caffeine: Yes Have you lived/traveled outside [place] in past 30 days?: No Contact w/someone who lives/traveled outside US past 30 days?: No Exposure to someone with infectious disease in past 14 days?: No Do you have a fever (greater than 100.4 F or 38 C)?: No Have you tested positive for COVID-19?: No Exposed to someone with COVID-19 in past 14 days?: No Do you have a sore throat?: No Do you have a cough?: No Do you have any weakness?: No Are you experiencing any nausea/vomitting?: No Do you have any diarrhea?: No Are you experiencing any unusual bleeding?: No Do you have any muscle aches/pain?: No Do you have any abdominal pain?: No Are you experiencing loss of taste or smell?: No Other Medical History Have you received the Pneumonia Vaccine: Yes Review of Systems Review of Systems Review of systems (narrative): Negative *Cardiovascular Comments: Negative *Gastrointestinal Comments: Negative *Genitourinary Comments: Negative *Musculoskeletal Comments: Negative *Neurologic Comments: Negative Meds Home Medications and Allergies Home Medications ?Medication ?Instructions ?Recorded ?Confirmed ?Type azelastine 137 mcg (0.1 %) nasal 1 spray intranasal BID 09/28/24 10/18/24 History spray cyclosporine 0.05 % eye drops in a 1 drp ophthalmic (eye) Q12H 09/28/24 10/18/24 History dropperette diclofenac potassium 50 mg tablet 50 mg PO DAILY 09/28/24 10/18/24 History escitalopram oxalate 5 mg tablet 5 mg PO HS 09/28/24 10/18/24 History ezetimibe 10 mg tablet 10 mg PO .TWICE A WEEK 09/28/24 10/18/24 History fluticasone furoate 50 1 inh inhalation HS PRN Asthma 09/28/24 10/18/24 History mcg/actuation blister powder for inhalation folic acid 1 mg tablet 1 mg PO DAILY 09/28/24 10/18/24 History lidocaine 5 % topical patch 1 patch topical DAILY PRN Pain 09/28/24 10/18/24 History (Scale Score 4-6) naltrexone 4.5 mg capsule 4.5 mg PO AM 09/28/24 10/18/24 History omeprazole 20 mg capsule,delayed 20 mg PO DAILY 09/28/24 10/18/24 History release ondansetron 4 mg disintegrating 4 mg PO Q6H PRN nausea and 09/28/24 10/18/24 Rx tablet vomiting #20 tabs progesterone micronized 100 mg 175 mg PO HS 09/28/24 10/18/24 History capsule ascorbic acid (vitamin C) 1,000 mg 1,000 mg PO DAILY 10/02/24 10/18/24 History capsule calcium polycarbophil 625 mg 1,250 mg PO DAILY 10/02/24 10/18/24 History tablet (FiberCon) cholecalciferol (vitamin D3) 25 25 mcg PO DAILY 10/02/24 10/18/24 History mcg (1,000 unit) capsule coenzyme Q10 75 mg capsule (Ultra 300 mg PO DAILY 10/02/24 10/18/24 History CoQ10) estradiol 0.01% (0.1 mg/gram) 1 appful vaginal DAILY 10/02/24 10/18/24 History vaginal cream levocetirizine 5 mg tablet 5 mg PO DAILY PRN per md 10/02/24 10/18/24 History magnesium 200 mg tablet 200 mg PO DAILY 10/02/24 10/18/24 History milk thistle 150 mg capsule 300 mg PO DAILY 10/02/24 10/18/24 History omega 4-cdj-zth-fish oil 1,000 mg 1 cap PO DAILY 10/02/24 10/18/24 History (120 mg-180 mg) capsule (Fish Oil) resveratrol 250 mg capsule 250 mg PO DAILY 10/02/24 10/18/24 History turmeric root extract 500 mg 1,000 mg PO DAILY 10/02/24 10/18/24 History capsule vitamin B complex 1 cap PO DAILY 10/02/24 10/18/24 History New Prescriptions to Start Prescriptions: Allergies Allergy/AdvReac Type Severity Reaction Status Date / Time cyclobenzaprine (From Allergy Shakiness Verified 10/16/24 15:52 Flexeril) pneumococcal vaccine (From Allergy Rash Verified 10/16/24 15:52 Pneumovax-23) Exam Data for Last 24 hours Vital signs and Labs for Last 24 Hours: Temp Pulse Resp BP O2 Del Method 98.1 F 75 14 134/70 Room Air 10/18/24 08:31 10/18/24 08:31 10/18/24 08:31 10/18/24 08:31 10/18/24 08:31 I & O for Last 24 hours: Intake & Output 10/15/24 10/16/24 10/17/24 10/18/24 23:59 23:59 23:59 23:59 Weight 133 lb *Routine HEENT Exam Head: Present normocephalic Eye: Present EOMI and PERRL ENT: Present mucous membranes moist *Routine Neck Exam Neck: Present supple *Routine Respiratory Exam Respiratory: Present CTA bilaterally *Routine Cardiovascular Exam Cardiovascular: Present RRR *Routine Abdominal Exam Abdominal: Present soft and normoactive bowel sounds; Absent tenderness *Routine Rectal Exam Rectal:: deferred *Routine Genitalia Exam Genitalia:: deferred *Routine Extremities Exam Extremities: Absent cyanosis, clubbing or edema *Routine Skin Exam Skin: Present warm; Absent rash *Routine Neurological Exam Neurological: Present alert and oriented X3 Assessment and Plan *Assessment and plan (1) History of melena: Status: Acute Category: Medical Code(s): Z87.19 - Personal history of other diseases of the digestive system (2) Nausea: Status: Acute Category: Medical Code(s): R11.0 - Nausea (3) Bloating: Status: Acute Category: Medical Code(s): R14.0 - Abdominal distension (gaseous) (4) Regurgitation of food: Status: Acute Category: Medical Code(s): R11.10 - Vomiting, unspecified (5) Diarrhea: Status: Acute Category: Medical Code(s): R19.7 - Diarrhea, unspecified Plan A/P: 1. Bloating with food regurgitation, nausea, history of melena and diarrhea is the preprocedural diagnosis. The patient will be anesthetized/sedated using MAC sedation. The patient has been seen and examined. Cardiac and lung assessment prior to the examination is stable. Proceed with planned diagnostic EGD.
--- NOTE | 2024-10-18 09:32 | HMH.PROCNOTE ---
[facility] Procedure Note Date: 10/18/24 Time: 09:47 Procedure Note:: Upper Endoscopy Procedure Report: Esophagogastroduodenoscopy with cold biopsies Endoscopost: Aric Romero II, MD Referring Physician: NEW Larose, [address] [place] [address] , [place] [address] Date of Procedure: October 18, 2024 Equipment: Olympus GIF 190 standard upper endoscope Sedation: MAC sedation Indications: Mrs. Lester is a 79-year-old female who is here for diagnostic upper endoscopy. She has had longstanding digestive difficulties. She has been seen by several GI providers and has lived in different states. She was living in [facility] and was seeing Dr. Silva. She did have her colonoscopy with [facility] in February 2018 and had a single polyp (serrated adenoma) removed. Her last colonoscopy with [facility] was an February 2023 and she had marked melanosis coli but also had adenomatous polyps. The patient has struggled with incomplete defecation/outlet dysfunction constipation. She also has intermittent bowel control difficulties with seepage and sometimes has a bowel movement when she urinates. She has had moderate bloating. More recently she has developed nausea, self-induced vomiting and black stools. She admittedly states that she took Pepto-Bismol. The vomiting is new. Her last EGD she states was with Dr. Silva in 2011. She reports no heartburn or reflux. She had been on pantoprazole by Dr. Silva but this was removed. She does take 2 FiberCon daily in the morning and MiraLAX. She reports no rectal bleeding or weight loss. The patient was placed on Iberogast and did have some initial improvement of her symptoms and diarrhea. Procedure: Prior to the procedure, a history and physical exam was performed, and patient's medications and allergies were reviewed. The risks, benefits and alternatives of the sedation and procedure were discussed with the patient. All questions were answered and informed consent was obtained. The patient was brought to the procedure room. Patient identification and proposed procedure were verified by the physician and the nurse. The patient was placed in a left lateral decubitus position and the scope was passed under direct vision. Throughout the procedure, the patient's blood pressure, pulse, and oxygen saturations were monitored continuously. The upper GI endoscopy was accomplished without difficulty. The patient tolerated the procedure well. Findings: The scope was passed directly into the upper esophagus and advanced to the fourth portion of duodenum and proximal jejunum. Cold biopsy x 1 was taken from the jejunum for disaccharidase assay. The proximal jejunum, post bulbar duodenum, ampulla and duodenal bulb were normal with normal mucosa and conniventes. Cold biopsies were taken from the first portion of duodenum to rule out celiac disease. The scope was withdrawn through a normal duodenal bulb and pylorus into the stomach. There was moderate bile reflux with mild linear reactive gastropathy of the antrum and body. Cold biopsies were taken from the antrum. There were several scattered hyperplastic appearing polyps in the body and fundus. Cold biopsies were taken from one of the polyps. Upon retroflexion there was no hiatal hernia. The scope was then withdrawn into the esophagus. There was a single tongue of salmon-colored mucosa that was biopsied in the distal esophagus to rule out intestinal metaplasia. There was no evidence of reflux esophagitis or Alvarez's. There were tertiary contractions and mild esophageal dysmotility. The remainder of the esophageal mucosa was normal. Impression: 1. Nonerosive GERD with mild esophageal dysmotility 2. Bile reflux with mild linear reactive gastropathy 3. Scattered gastric polyps?rule out hyperplastic polyps versus fundic gland polyps Plan: I will follow-up the biopsies and disaccharidase assay. There was no source of bleeding. Most of your symptoms of dyspepsia are related to and driven by lower intestinal gas pressure gradients/high gas pressure buildup resulting in backflow of bile and peptic fluid from the duodenum into the stomach (duodenal reflux). This gas production (carbon dioxide, hydrogen, methane, etc.) from the lower intestinal tract is the byproduct of colonic bacterial fermentation. This colonic fermentation occurs when there is more carbohydrate (dietary starches, sugars and high residue plant fiber) substrate that does not get digested (in the middle or small intestine) or occurs when there is colonic fecal buildup and colonic bacterial overgrowth. This indeed leads to bloating and the gas pressure buildup with gas pressure gradients that do drive backflow and dyspepsia. I would recommend pelvic floor PT.
[2024-10-18 09:50] VITALS: BP 100/50; PULSE 67; RESP 16; TEMP 36.1; O2SAT 95
[2024-10-18 10:00] VITALS: BP 103/49; PULSE 72; RESP 16; O2SAT 98
[2024-10-18 10:10] VITALS: BP 102/58; PULSE 71; RESP 16; O2SAT 99
[2024-10-18 10:20] VITALS: BP 129/66; PULSE 68; RESP 16; O2SAT 99
[2024-10-18 10:30] VITALS: BP 115/63; PULSE 62; RESP 16; O2SAT 99
[2024-10-23 14:26] LABS: Disclaimer Notes (.); Interpretation Notes (.); Lactase 3.19 (>/= 14.0); Maltase 378.16 (>/= 110.0); Palatinase 22.31 (>/= 8.5); Reference Notes (.); Sucrase 95.63 (>/= 25.0)
== END 2024-10-18 10:30 | disposition home or self-care (01) ==
PROVIDERS: PCP Nurse Practitioner; Visit Provider Internal Medicine Gastroenterology
PROC: 0DJ08ZZ Inspection of Upper Intestinal Tract, Via Natural or Artificial Opening Endoscopic (ICD-10-PCS; CPT 43239; principal; 2024-10-18 09:30)
DX: K21.9 Gastro-esophageal reflux disease without esophagitis (principal); K31.7 Polyp of stomach and duodenum; Z86.0100 Personal history of colon polyps, unspecified; Z88.2 Allergy status to sulfonamides; Z88.7 Allergy status to serum and vaccine; Z79.899 Other long term (current) drug therapy
CPT/HCPCS: 43239; 82657; 88305; J7120

== ENCOUNTER 2025-02-25 12:39 | Outpatient (CLI) | payer MEDICARE, OTHER, SELFPAY ==
--- OUTSIDE RECORDS SUMMARY | 2023-09-01 10:22 | XMS_ITS | Encounter Summary ---
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 Name Role Phone Annelise Mcnair APRN Primary Care Provider Reason for Referral * Diagnostic Imaging (Routine) - Closed Specialty Diagnoses / Procedures Referred By Contact Referred To Contact Obstetrics and Gynecology Diagnoses Postmenopausal status Procedures [place]EX[place] [address] [place] [id number] Phone: tel: fax: [facility] [address] [phone] Phone: tel: fax: Referral ID Status Reason Start Date Expiration Date Visits Re quested Visits Authorized [id number] Closed 09/01/2023 08/31/2024 1 1 Reason for Visit * Diagnostic Imaging (Routine) - Closed Specialty Diagnoses / Procedures Referred By Contact Referred To Contact Obstetrics and Gynecology Diagnoses Postmenopausal status Procedures DEXA Bone Density Axial Charlene Herrera MD [address] [address] Phone: tel: fax: [facility] [address] [address] Phone: tel: fax: Referral ID Status Reason Start Date Expiration Date Visits Re quested Visits Authorized [id number] Closed 09/01/2023 08/31/2024 1 1 Encounter Details Date Type Department Care Team (Latest Contact Info) Description 09/01/2023 10:22 AM EDT Hospital Encounter [facility] [address] [place] [address] Postmenopausal status Social History Tobacco Use Types Packs/Day Years Used Date Smoking Tobacco: Never Passive Smoke Exposure: Never Smokeless Tobacco: Never Alcohol Use Standard Drinks/Week Comments Yes 0 (1 standard drink = 0.6 oz pur e alcohol) Social drinker only PHQ-2 Answer Date Recorded Retired PHQ-9: Brief Depression Severity Measure Score 10 03/14/2023 PHQ-2 Answer Date Recorded Patient Health Questionnaire-2 Score 0 12/27/2024 Comments No Sex and Gender Information Value Date Recorded Sex Assigned at Female 09/07/2024 9:53 AM EDT Legal Sex Female 4:26 PM EDT Gender Identity Not on file Sexual Orientation Straight 09/07/2024 9: 53 AM EDT documented as of this encounter Functional Status documented as of this encounter Plan of Treatment Upcoming Encounters Date Type Department Care Team (Late st Contact Info) Description 03/04/2025 9:30 AM EDT Ancillary Procedure [facility] [address] [phone] 03/04/2025 10:30 AM EDT Office Visit [facility] [address] [phone] Zo Pineda MD [address] [address] 03/11/2025 9:45 AM EDT Office Visit [facility] [address] [place] [phone] Annelise Mcnair APRN [address] [place] [address] 03/14/2025 11:45 AM EDT [facility]ment [facility] [address] [place] [address] Pita Oneill documented as of this encounter Procedures Procedure Name Priority Date/Time Associated Diagnosis Comments DEXA BONE DENSITY AXIAL Routine 09/01/2023 10:45 AM EDT Postmenopausal status documented in this encounter Results * DEXA Bone Density Axial (09/01/2023 10:45 AM EDT) Anatomical Region Laterality Modality Wrist, Hip, L-spine N/A Bone Density Narrative 10/04/2023 2:51 PM EDT Bone Density Scan Findings Consistent with Normal Would recommend Vitamin D and Weight Bearing Exercises Follow Up Repeat Study in 3-5 Years Charlene Herrera MD us Charlene Herrera MD IMG DXA ORDERABLES Final Result documented in this encounter Visit Diagnoses Diagnosis Postmenopausal status Asymptomatic postmenopausal status (age-related) (natural) documented in this encounter Additional Health Concerns Assessment Noted Time PHQ-2 Depression Total Score: 2 03/14/20 23 8:55 AM EDT documented as of this encounter Care Teams Wire Drawing 

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
--- OUTSIDE RECORDS SUMMARY | 2025-01-31 10:14 | XMS_ITS | Encounter Summary ---
Author Organization [facility] Address [address] [place] [address] Care Team Providers Care Phys Ther Name Role Phone Annelise Mcnair APRN Primary Care Provider Reason for Visit * Health Education (Routine) - Closed Specialty Diagnoses / Procedures Referred By Gigi t Referred To Contact Nutrition Diagnoses Weight gain Procedures CT OFFICE/OUTPATIENT NEW MODERATE MDM 45 MINUTES Annelise Mcnair APRN [address] [place] [address] Phone: tel: fax: [facility] [address] [place] [address] Phone: tel: fax: Referral ID Status Reason Start Date Expiration Date V isits Requested Visits Authorized [id number] Closed Specialty Services Required 01/16/2025 04/17/2026 1 1 Encounter Details Date Type Department Care Team (Latest Contact Info) Description 01/31/2025 10:14 AM EDT - 01/31/2025 11:59 PM EDT Hospital Encounter [facility] [address] [place] [address] Pita Oneill Discharge Disposition: Home or Self Care Social History Tobacco Use Types Packs/Day Years [...] AM EDT documented as of this encounter Medications at Time of Discharge azelastine (ASTELIN) 0.1 % nasal spray USE 2 SPRAYS IN EACH NOSTRIL DIRECTED BY PROVIDER TWICE A DAY 120 mL 3 03/22/2024 Coenzyme Q10 300 MG capsule Take 1 capsule by mouth Daily. cycloSPORINE (RESTASIS) 0.05 % ophthalmic emulsion 1 drop 2 (Two) Times a Day. escitalopram (LEXAPRO) 5 MG tablet TAKE 1 TABLET DAILY 90 tablet 3 01/21/2025 Evolocumab (REPATHA) solution auto-injector SureClick injectionIndicati ons:Statin intolerance Inject 1 mL under the skin into the appropriate area as directed Every 14 (Fourteen) Days. 2 mL 5 11/29/2024 folic acid (FOLVITE) 1 MG tablet Take 1 tablet by mouth Daily. 90 tablet 1 04/18/2023 levocetirizine (XYZAL) 5 MG tablet Take 1 tablet by mouth Every Evening. lidocaine (LIDODERM) 5 %Indications:Sjog karan syndrome with inflammatory arthritis Place 1 patch on the skin as directed by provider Daily. Remove & Discard patch within 12 hours or as directed by MD Boyer each 1 03/07/2024 magnesium citrate 1.745 GM/30ML solution solution Take 150 mL by mouth Daily. Magnesium Glycinate powder Take 200 mg by mouth Every Night. Milk Thistle 140 MG capsule Take 175 mg by mouth Daily. Naltrexone HCl, Pain, 4.5 MG capsuleIndication s:Sjogren syndrome with inflammatory arthritis Take 4.5 mg by mouth Daily. 90 capsule 2 07/30/2024 NON FORMULARY Bi-Estrogen 2 MG/G Testosterone 0.5 MG/G inserted vaginally every evening. Bowman-3 Fatty Acids (fish oil) 1000 MG capsule capsule Take 2 capsules by mouth Daily With Breakfast. omeprazole (priLOSEC) 20 MG capsule TAKE 1 CAPSULE DAILY BEFORE BREAKFAST 90 capsule 3 03/22/2024 Oral Electrolytes ([employer] ELECTROLYTE SOLUTION PO) Take 1 Scoop by mouth Daily. polycarbophil (calcium polycarbophil) 625 MG tablet tablet Take 2 tablets by mouth Daily. triamcinolone (KENALOG) 0.1 % cream Apply 1 Application topically to the appropriate area as directed 2 (Two) Times a Day. 28.4 g 12/28/2024 TURMERIC PO Take 1,500 mg by mouth. vitamin B-12 (CYANOCOBALAMIN) 1000 MCG tablet Take 1 tablet by mouth Daily. Vitamin D-Vitamin K (VITAMIN K2-VITAMIN D3 PO) Take 12 drops by mouth Daily. Progesterone (PROMETRIUM) 100 MG capsule Take 2 capsules by mouth Daily. 20 capsule 1 12/17/2024 documented as of this encounter Consult Notes * Pita Oneill - 01/31/2025 10:15 AM EDT [facility] Nutrition Services Initial 60 Minute Nutrition Visit Date: 01/31/2025 Patient Name: Ene Lester : 1945 Referring Provider: Annelise Mcnair APRN Reason for Visit: Weight management Visit Format: Phone Nutrition Assessment Social History: Social History Socioeconomic History Marital status: Tobacco Use Smoking status: Never Passive exposure: Never Smokeless tobacco: Never Vaping Use Vaping status: Never Used Substance and Sexual Activity Alcohol use: Yes Comment: Social drinker only Drug use: Never Sexual activity: Not Currently Partners: Male control/protection: Tubal ligation, Post-menopausal Active Problem List: Patient Active Problem List Diagnosis Vaginal itching [N89.8] Chronic pain of right ankle [M25.571, G89.29] Acute pain of left shoulder [M25.512] Normal exam [Z00.00] Initial Medicare annual wellness visit [Z00.00] Lumbar back pain [M54.50] Dysuria [R30.0] Bronchiolitis [J21.9] Bronchitis [J40] Abnormal vaginal bleeding [N93.9] BRIAN (obstructive sleep apnea) [G47.33] Sjogren's disease [M35.00] Daily headache [R51.9] Irritable bowel syndrome with both constipation and diarrhea [K58.2] Anxiety [F41.9] Chronic fatigue [R53.82] Nonrheumatic aortic valve stenosis [I35.0] Shortness of breath [R06.02] Pericardial effusion [I31.39] Elevated blood pressure reading without diagnosis of hypertension [R03.0] HLD (hyperlipidemia) [E78.5] Current Medications: Current Outpatient Medications: azelastine (ASTELIN) 0.1 % nasal spray, USE 2 SPRAYS IN EACH NOSTRIL DIRECTED BY PROVIDER TWICE A DAY, Disp: 120 mL, Rfl: 3 Coenzyme Q10 300 MG capsule, Take 1 capsule by mouth Daily., Disp: , Rfl: cycloSPORINE (RESTASIS) 0.05 % ophthalmic emulsion, 1 drop 2 (Two) Times a Day., Disp: , Rfl: escitalopram (LEXAPRO) 5 MG tablet, TAKE 1 TABLET DAILY, Disp: 90 tablet, Rfl: 3 Evolocumab (REPATHA) solution auto-injector SureClick injection, Inject 1 mL under the skin into the appropriate area as directed Every 14 (Fourteen) Days., Disp: 2 mL, Rfl: 5 fluticasone (FLONASE) 50 MCG/ACT nasal spray, 1 spray into the nostril(s) as directed by provider Daily for 90 days., Disp: 11.1 mL, Rfl: 3 folic acid (FOLVITE) 1 MG tablet, Take 1 tablet by mouth Daily., Disp: 90 tablet, Rfl: 1 levocetirizine (XYZAL) 5 MG tablet, Take 1 tablet by mouth Every Evening. (Patient not taking: Reported on 12/27/2024), Disp: , Rfl: lidocaine (LIDODERM) 5 %, Place 1 patch on the skin as directed by provider Daily. Remove & Discard patch within 12 hours or as directed by MD, Disp: 90 each, Rfl: 1 magnesium citrate 1.745 GM/30ML solution solution, Take 150 mL by mouth Daily., Disp: , Rfl: Magnesium Glycinate powder, Take 200 mg by mouth Every Night., Disp: , Rfl: Milk Thistle 140 MG capsule, Take 175 mg by mouth Daily. (Patient taking differently: Take 300 mg by mouth Daily.), Disp: , Rfl: Naltrexone HCl, Pain, 4.5 MG capsule, Take 4.5 mg by mouth Daily., Disp: 90 capsule, Rfl: 2 NON FORMULARY, Bi-Estrogen 2 MG/G Testosterone 0.5 MG/G inserted vaginally every evening., Disp: , Rfl: Bowman-3 Fatty Acids (fish oil) 1000 MG capsule capsule, Take 2 capsules by mouth Daily With Breakfast., Disp: , Rfl: omeprazole (priLOSEC) 20 MG capsule, TAKE 1 CAPSULE DAILY BEFORE BREAKFAST, Disp: 90 capsule, Rfl: 3 Oral Electrolytes (CVS ELECTROLYTE SOLUTION PO), Take 1 Scoop by mouth Daily., Disp: , Rfl: polycarbophil (calcium polycarbophil) 625 MG tablet tablet, Take 2 tablets by mouth Daily., Disp: ,Rfl: Progesterone (PROMETRIUM) 100 MG capsule, Take 2 capsules by mouth Daily., Disp: 20 capsule, Rfl: 1 triamcinolone (KENALOG) 0.1 % cream, Apply 1 Application topically to the appropriate area as directed 2 (Two) Times a Day., Disp: 28.4 g, Rfl: 0 TURMERIC PO, Take 1,500 mg by mouth., Disp: , Rfl: vitamin B-12 (CYANOCOBALAMIN) 1000 MCG tablet, Take 1 tablet by mouth Daily., Disp: , Rfl: Vitamin D-Vitamin K (VITAMIN K2-VITAMIN D3 PO), Take 12 drops by mouth Daily., Disp: , Rfl: Labs: November 2024: Chol: 228 (increase from 205); T (increase from 90); HDL: 59; LDL: 141 (increase from 122) February 2024: B; GFR: 73; BUN: 21; Crea: 0.83; Pot: 4.5; Sodium: 139 Hunger Vital Sign Food Insecurity Assessment: Within the past 12 months I/we worried whether our food would run out before I/we got money to buy more: No Within the past 12 months the food I/we bought just didn't last and I/we didn't have money to get more: No Use of food assistance programs (WIC, food stamps, food zamudio) No Food & Nutrition Related History Food Allergies: Shrimp, milk Food Intolerances: lactose (mild, still consumes hard cheeses) Food Behavior: None Nutrition Impact Symptoms: Mixed diarrhea/constipation Gastrointestinal conditions that impact intake or food choices: GERD; IBS-M Details at home: Ene lives at home with her ; they occasionally share meals but will usually prepare their own meals do to different schedules Who prepares most meals: Self Who does grocery shopping: Self How many meals are purchased from fast food/sit down restaurants per week: Infrequently Difficulty chewin - Normal Difficulty swallowin - Normal Diet requirement related to personal preference or cultural belief: None indicated History of eating disorder/disordered eating habits: None Language/communication details: Tanzanian Barriers to learning: No barriers identified at this time 24 Hour Recall: Time Food/beverages consumed Breakfast Protein powder with water/almond milk, fruit Coffee (~2 cups) Snack none Lunch Scratch made chicken salad sandwich with cruz, canned chicken, almonds, pecans, dried cranberries) on high protein/fiber bread 1 square of dark chocolate Snack none Dinner Baked chicken breast with baked potato Or Sloppy [place] Or Meatloaf Or Baked cod Snack 1 square of dark chocolate Beverage ~64oz water/day 4-8oz [place] Milk 2 cups coffee Anthropometrics Height: Ht Readings from Last 1 Encounters: 12/27/24 157.5 cm (62 ) Weight: Wt Readings from Last 3 Encounters: 12/27/24 61.2 kg (135 lb) 12/12/24 59 kg (130 lb) 09/14/24 59 kg (130 lb) BMI: 24.69 Weight Change: Ene discusses feeling her best when she weighed ~121lbs, which was most of her adult life. Physical Activity Physical activity comments: MWF, 60-70 minutes of water aerobics; Tth, strength training Estimated Needs Estimated Energy Needs: 1200-1300kcal/day (1.2) Estimated Protein Needs: 60-100g/day (20-30%) Estimated Fluid Needs: Minimum of 64oz water/day Discussion / Education Ene is a 79 year old female referred for weight management who has a history of anemia, GERD, HTN, HLD, IBS-M, and cholecystectomy. Ene feels that her biggest nutrition related concern is that she has gained 10lbs in the past few years and does not wish to continue to gain weight. She reports that she has also been someone who consumes a mostly nutrient dense diet although she describes a strong sweet tooth. She discussed the onset of daily diarrhea in ~2014. Most recently, she has begun toadd Ibergast to her daily intake as well as engaging in pelvic floor therapy, both of which she feels has helped somewhat but have not resolved her GI concerns. Ene states that increasing her protein and fiber intake has been recommended to manage diarrhea as well as contribute to healthy aging. Ene states that she experienced three days of no diarrhea when she visited her daughter, who eats 'very healthy;' she attributes this to very little stress and having someone prepare nutritious meals for her. As she and her continue with PT work, Ene states that they usually prepare their own meals. Ene drinks ~1.5-2 40oz Erick water bottles/day as well as water in her morning smoothie. She has recently been more mindful of protein intake and has purchased some 'high protein' packaged foods but feels that they are expensive and that she does not much enjoy most of the products.She would ideally like to be able to eat mostly whole foods. RD reviewed Ene's current dietary patterns in the context of weight management, GI health, and chronic disease risk factors. Education focused on: Protein: RD discussed the importance of lean protein for maintaining muscle mass, supporting healthy aging, aiding in satiety, and stabilizing blood sugars. RD provided examples for whole-food sources (eggs, non-dairy yogurt, poultry, fish, lentils, beans, edamame, and nuts/seeds in appropriate portions). Encouraged distributing protein intake evenly across meals to optimize absorption and satiety. Fiber: RD discussed the role of soluble fiber for regulating bowel movements, managing cholesterol,and supporting gut health. RD recommended increasing intake gradually from foods such as oats, chiaseeds, flaxseed, apples, pears, zucchini, carrots, and well-cooked vegetables. RD discussed that insoluble fiber should be included as well but that excessive insoluble fiber may worsen diarrhea symptoms in IBS-M. Fats: RD reviewed types of dietary fat and their impact on cholesterol and weight. RD encouraged Ene to limit saturated fat (high-fat meats, butter, processed baked goods) while increasing unsaturated fat sources such as olive oil, avocado, nuts, and fatty fish. Sweet Cravings: RD validated Ene's sweet tooth and provided strategies for managing cravings, including pairing naturally sweet foods (fruit, yogurt, smoothies) with protein/fiber, practicing mindful eating, and limiting added sugars to prevent blood sugar fluctuations. GI Health: RD reiterated that stress reduction and consistent, balanced meals may positively influence symptoms. Noted her improvement when meals were prepared in a lower-stress environment. RD suggested continuing pelvic floor therapy and mindful eating practices. Weight Management: RD emphasized small, sustainable changes such as prioritizing lean protein, soluble fiber, and nutrient-dense whole foods while limiting processed ???high-protein?? packaged products that are costly and not preferred. Assessment of patient engagement: Engaged; asked excellent questions Measurement of understanding: Patient verbalized understanding, Patient able to demonstrate understanding with teach back Resources Provided: mailed: [employer] Healthy Meal and Snack Ideas and High Fiber Food List; Macros; Nutrition Label; MyPlate Fiber sources; [place] Soluble Fiber; Protein Content of Foods; Med Diet Booklet and CC recs; Anti-Inflammatory Diet handout RD provided Ene with contact information and encouraged her to reach out with questions. Goal (s) Goal 1: Swap almond milk for Fairlife milk or high protein to use in smoothies and/or with occasional cereal. Goal 2: Include high omega 3 foods such as salmon, walnuts, candace seeds (each twice weekly) Goal 3: Use fiber handouts to increase fiber intake, focusing on soluble fibers. Plan of Care PES Statement: Elevated lipid levels related to excessive intake of saturated fats and added sugars and inadequatefiber intake as evidenced by cholesterol panel showing total cholesterol of 228, LDL of 141, and triglycerides of 160. Follow Up Visit Follow Up: March 14 at 11:45am, Phone Total of 60 minutes spent with patient on nutrition counseling. Education based on Academy of Nutrition and Dietetics guidelines. Patient was provided with RD's contact information. Thank you for this referral. documented in this encounter Plan of Treatment Upcoming Encounters Date Type Department Care Team ([facility] Contact Info) Description 03/04/2025 9:30 AM EDT Ancillary Procedure [facility] [address] [place] [address] 03/04/2025 10:30 AM EDT Office Visit [facility] [address] [place] [address] Zo Pineda MD [address] [place] [address] 03/11/2025 9:45 AM EDT Office Visit [facility] [address] [place] [address] [place] [address] Annelise Mcnair APRN [address] [place] [address] 03/14/2025 11:45 AM EDT Appointment [address] [place] [address] Pita Oneill Scheduled Referrals Name Type Priority Associated Diagnoses Order Schedule Ambulatory Referral to Nutrition Services Outpatient Referral Routine Weight gain Ordered: 01/16/2025 documented as of this encounter Visit Diagnoses Not on filedocumented in this encounter Care Teams Phys Ther Relationship Specialty Start Date End Date Annelise Mcnair APRN [address] [place] [address] PCP - General Family Medicine 03/14/23 documented as of this encounter
--- OUTSIDE RECORDS SUMMARY | 2025-02-25 12:43 | XMS_ITS | Encounter Summary ---
Author Organization [facility] Address [address] [place] [address] Care Team Providers Care Multigraph Operator Name Role Phone Annelise Mcnair APRN Primary Care Provider Reason for Visit * Reason Comments Med Refill Encounter Details Date Type Department Care Team (Late st Contact Info) Description 01/19/2025 Refill [facility] [address] [place] [phone] Annelise Mcnair APRN [address] [place] [address] Social History Tobacco Use Types Packs/Day Years [...] AM EDT documented as of this encounter Miscellaneous Notes * Telephone Encounter - Shasta Freeman MA - 01/21/2025 7:50 AM EDT Rx sent documented in this encounter Plan of Treatment Upcoming Encounters Date Type Department Care Team (Late st Contact Info) Description 03/04/2025 9:30 AM EDT Ancillary Procedure [facility] [address] [place] [address] 03/04/2025 10:30 AM EDT Office Visit [facility] [place] [address] [place] [address] 03/11/2025 9:45 AM EDT Office Visit [facility] [address] [place] [address] [place] [address] Annelise Mcnair APRN [address] [place] [address] 03/14/2025 11:45 AM EDT Appointment [facility] [address] [place] [address] [address] [place] [phone] Pita Oneill documented as of this encounter Visit Diagnoses Not on filedocumented in this encounter Care Teams Multigraph Operator Relationship Specialty Start Date End Date Annelise Mcnair, LORA [address] [place] [address] PCP - General Family Medicine 03/14/23 documented as of this encounter
--- OUTSIDE RECORDS SUMMARY | 2025-02-25 12:43 | XMS_ITS | Encounter Summary ---
Author Organization [facility] Address [address] [place] [address] Care Team Providers Care Sushi Chef Name Role Phone Annelise Mcnair APRN Primary Care Provider Reason for Visit * Reason Onset Date Comments ADDITIONAL REFILL 01/03/2025 Encounter Details Date Type Department Care Team (Late st Contact Info) Description 01/03/2025 Telephone [facility] [address] [place] [phone] Annelise Mcnair APRN [address] [place] [address] ADDITIONAL REFILL Social History Tobacco Use Types Packs/Day Years [...] encounter Miscellaneous Notes * Telephone Encounter - Annelise Mcnair APRN - 01/04/2025 3:25 PM EDT Spoke with patient regarding her natrexone and her estradiol cream prescriptions. [facility] Devon, verbal orders readback and verified * Telephone Encounter - Mendoza Louie RegSched Rep - 01/03/2025 10:34 AM EDT Caller: [facility] Relationship: Best call back number: [phone] Which medication are you concerned about: ESTRIOL ESTRADIOL 80/20 TESTOSTERONE 2 MG/ML 0.50 MG/ML Who prescribed you this medication: Beck MCNAIR What are your concerns: PHARMACY IS ASKING FOR ADDITIONAL REFILL DUE TO [place] STATE LAW. documented in this encounter Plan of Treatment Upcoming Encounters Date Type Department Care Team (Late st Contact Info) Description 03/04/2025 9:30 AM EDT Ancillary Procedure [facility] [address] [place] [address] 03/04/2025 10:30 AM EDT Office Visit [facility] [address] [place] [address] Zo Pineda MD [address] [place] [address] 03/11/2025 9:45 AM EDT Office Visit [facility] [address] [place] [address] [place] [phone] Annelise Mcnair APRN [address] [place] [address] 03/14/2025 11:45 AM EDT Appointment [facility] [address] [place] [phone] Pita Oneill documented as of this encounter Visit Diagnoses Not on filedocumented in this encounter Care Teams Sushi Chef Relationship Specialty Start Date End Date Annelise Mcnair, LORA [address] [place] [address] PCP - General Family Medicine 03/14/23 documented as of this encounter
--- OUTSIDE RECORDS SUMMARY | 2025-02-25 12:43 | XMS_ITS | Clinical Summary ---
Author Organization [facility] Address [address] [id number] Care Team Providers Care Flooring Sales Manager Name Role Phone Annelise Mcnair APRN Primary Care Provider [phone] Allergies Active Allergy Reactions Criticality Noted Date Comments Aluminum Dermatitis Low 12/25/2020 Cyclobenzaprine Other - please docum ent in the comment field Low 02/22/2017 Hives Darbepoetin Antonio Unknown - Patient st ates they do not know rxn details Low 06/02/2022 Menthol (Topical Analgesic) Unknown - Pa tient states they do not know rxn details Low 05/17/2023 Pneumococcal Vaccine Rash Medium 12/25/2020 Shrimp Extract Unknown - Patient st ates they do not know rxn details Low 03/14/2023 Unknown Sulfa Drugs Hives High 01/10/2020 Immunizations Immunization Administration Dates Next Due Influenza, seasonal, injectable 02/26/2015 Pneumococcal Polysaccharide PPV23 02/26/2015 Family History Medical History Relation Name Comments Alzheimer's disease Mother Relation Name Status Comments Mother Social History Tobacco Use Types Packs/Day Years Used Date Smoking Tobacco: Never Alcohol Use Standard Drinks/Week Comments No 0 (1 standard drink = 0.6 oz pur e alcohol) Comments Unknown Sex and Gender Information Value Date Recorded Sex Assigned at Not on file Legal Sex Female 8:43 PM EDT Gender Identity Not on file Sexual Orientation Not on file Last Filed Vital Signs Vital Sign Reading Time Taken Comments Blood Pressure - - Pulse - - Temperature - - Respiratory Rate - - Oxygen Saturation - - Inhaled Oxygen Concentration - - Weight 56.2 kg (124 lb) 05/24/2023 11:05 AM EST Height 157.5 cm (5' 2 ) 05/24/2023 11:05 AM EST Body Mass Index 22.68 05/24/2023 11:05 AM EST Plan of Treatment Upcoming Encounters Date Type Department Care Team (Late st Contact Info) Description 04/19/2025 3:30 PM EST Ovarian Cancer Screening [facility] [address] [place] [address] Health Maintenance Due Date Last Done Comments [facility]-Depression Screening 1945 [facility]-Hepatitis C Screening 1945 [facility]-Infant/Child/Adol SDOH Screenings 1945 [facility]- SDOH Screenings 09/18/1965 [facility]-Adult SDOH Screenings 09/18/1965 [facility]-Pneumococcal Vaccine: 50+ Years (2 of 2 - PCV) 02/24/2019 02/24/2018, 02/26/2015 [facility]-Zoster Vaccines (2 of 3) 06/25/2019 04/30/2019, 02/07/2019 [facility]-RSV Vaccine: 60+ Years or (1 - 1-dose 75+ series) 09/18/2022 [id number] Vaccine ( - 2024- season) 2025 06/08/2021, 08/20/2020, 07/23/2020 [facility]-Influenza Vaccine (#1) 01/14/202503/14, 04/01/2017, 02/26/2015 [facility]-Medicare Annual Wellness (AWV) 03/07/2025 03/07/2024, 11/17/2022, 08/20/2021 [facility]-Bone Density Scan 08/31/2025 09/01/2023 [facility]-DTaP,Tdap,and Td Vaccines (3 - Td or Tdap) 01/26/2033 01/26/2023, 09/30/2017 [facility]-Hepatitis A Vaccines Aged Out 01/30/2019, 07/14 No longer eligible based on patient's age to complete this topic [facility]-Breast Cancer Screening Discontinued 08/27/2022, 07/15/2021, 05/21/2020, Additional history exists HPV Vaccines Aged Out No longer eligi ble based on patient's age to complete this topic [facility]-HIB Vaccines Aged Out No longer e ligible based on patient's age to complete this topic [facility]-IPV Vaccines Aged Out No longer e ligible based on patient's age to complete this topic [facility]-Rotavirus Vaccines Aged Out No lo nger eligible based on patient's age to complete this topic Insurance [address] [place] [address] MEDICARE [facility] Care Teams Flooring Sales Manager Relationship Specialty Start Date End Date Annelise Mcnair APRN [address] [place] [address] PCP - General 04/06/24
--- OUTSIDE RECORDS SUMMARY | 2025-02-25 12:43 | XMS_ITS | Encounter Summary ---
Author Organization [facility] Address [address] [place] [address] Care Team Providers Care Sap Gatherer Name Role Phone XuPhuAnneliserubio [place] APRN Primary Care Provider Encounter Details Date Type Department Care Team (Late st Contact Info) Description 09/18/2024 Results Follow-Up [facility] OBGYN [address] [place] [address] Charlene Herrera MD [address] [facility] [address] [place] [address] Social History Tobacco Use Types Packs/Day Years Used Date Smoking Tobacco: Never Passive Smoke Exposure: Never Smokeless Tobacco: Never Alcohol Use Standard Drinks/Week Comments Yes 0 (1 standard drink = 0.6 oz pur e alcohol) Social drinker only PHQ-2 Answer Date Recorded Retired PHQ-9: Brief Depression Severity Measure Score 10 03/14/2023 PHQ-2 Answer Date Recorded Patient Health Questionnaire-2 Score 0 03/07/2024 Comments No Sex and Gender Information Value Date Recorded Sex Assigned at Female 09/07/2024 9:53 AM EDT Legal Sex Female 4:26 PM EDT Gender Identity Not on file Sexual Orientation Straight 09/07/2024 9: 53 AM EDT documented as of this encounter Plan of Treatment Upcoming Encounters Date Type Department Care Team (Late st Contact Info) Description 03/04/2025 9:30 AM EDT Ancillary Procedure [facility] [address] 03/04/2025 10:30 AM EDT Office Visit [facility] [address] [place] [address] [place] [address] [address] [place] [address] 03/11/2025 9:45 AM EDT Office Visit [facility] [address] [place] [address] [place] [address] Annelise Mcnair APRN [address] [place] [address] 03/14/2025 11:45 AM EDT Appointment [facility] [address] [place] [address] Pita Oneill documented as of this encounter Visit Diagnoses Not on filedocumented in this encounter Care Teams Sap Gatherer Relationship Specialty Start Date End Date Annelise Mcnair APRN [address] [place] [address] PCP - General Family Medicine 03/14/23 documented as of this encounter
--- OUTSIDE RECORDS SUMMARY | 2025-02-25 12:43 | XMS_ITS | Encounter Summary ---
Author Organization [facility] Address [address] [address] Care Team Providers Care Immigration Investigator Name Role Phone Annelise Mcnair APRN Primary Care Provider Encounter Details Date Type Department Care Team (Late st Contact Info) Description 01/15/2025 Telephone [facility] CARDIOLOGY [address] [place] [address] Zo Pineda MD [address] [place] [address] Social History Tobacco Use Types [...] encounter Miscellaneous Notes * Telephone Encounter - Zo Pineda MD - 01/15/2025 10:26 AM EDT Sent mychart message * Telephone Encounter - Isa Salamanca MA - 01/15/2025 9:05 AM EDT Patient is requesting holter results. Please advise. * Telephone Encounter - Maria Del Rosario Vega RegSched Rep - 01/15/2025 8:42 AM EDT PT CALLED REQUESTING HER RESULTS FROM HER HOLTER MONITOR. SHE WOULD LIKE A CALL BACK OR CAN SEND A MYCHART MESSAGE. THANKS. documented in this encounter Plan of Treatment Upcoming Encounters Date Type Department Care Team (Late st Contact Info) Description 03/04/2025 9:30 AM EDT Ancillary Procedure [facility] [place] [address] 03/04/2025 10:30 AM EDT Office Visit [facility] [place] [address] [address] [place] [address] 03/11/2025 9:45 AM EDT Office Visit [facility] [address] [place] [address] [place] [address] Annelise Mcnair APRN [address] [place] [address] 03/14/2025 11:45 AM EDT Appointment [facility] [address] [facility] [address] [place] [address] Pita Oneill documented as of this encounter Visit Diagnoses Not on filedocumented in this encounter Care Teams Immigration Investigator Relationship Specialty Start Date End Date Annelise Mcnair APRN [address] [place] [address] PCP - General Family Medicine 03/14/23 documented as of this encounter
--- OUTSIDE RECORDS SUMMARY | 2025-02-25 12:43 | XMS_ITS | Clinical Summary ---
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 [place] [address] Pita Oneill Health Maintenance Due Date Last Done Comments Pneumococcal Vaccine 50+ (2 of 2 - PCV) 02/24/2019 02/24/2018, 02/26/2015 ZOSTER VACCINE (2 of 3) 06/25/2019 04/30/2019, 02/07 RSV Vaccine - Adults (1 - 1- dose 75+ series) 09/18/2022 INFLUENZA VACCINE 12/14/2024 03/14/2023, , 03/05/2022, Additional history exists COVID-19 Vaccine (2024- 6 season) 2025 06/08/2021, 08/20/2020, 07/23/2020 ANNUAL WELLNESS VISIT 03/07/2025 03/07/2024 , 11/17/2022, 11/17/2022, Additional history exists PAP SMEAR 04/12/2025 04/12/2023, 12/18/2019 DXA SCAN 08/31/2025 09/01/2023, 06/2017, 01/23/2015, Additional history exists LIPID PANEL 11/26/2025 11/26/2024, 08/14, 08/29/2024, Additional history exists TDAP/TD VACCINES (3 - Td or Tdap) 01/26/2033 023, 09/30/2017 COLONOSCOPY Discontinued 03/09/2023, 02/14, 11/24/2022, Additional history exists HEPATITIS C SCREENING Completed 04/17/2024, 022 COLORECTAL CANCER SCREENING Discontinued FECAL OCCULT BLOOD TEST Discontinued 09/29/19, 11/23/2016, 10/24/2014, Additional history exists MAMMOGRAM Discontinued 11/23/2024, 05/16, 05/11/2024, Additional history exists COLOGUARD Discontinued COLON CANCER SCREENING 5 YEA R SIGMOIDOSCOPY Discontinued CT COLONOGRAPHY Discontinued FIT Testing (1 year) Discontinued Procedures Procedure Name Priority Date/Time Associated Diagnosis Comments HOLTER MONITOR >7 DAYS UP TO 15 DAYS HOOK-UP & INTERP Routine 12/19/2024 11:40 AM EDT Palpitations CONV SARS-COV-2 SPIKE AB DILUTION Routine 11/26/2024 9:52 AM EDT LIPID PANEL Routine 11/26/2024 9:52 AM EDT SARS-COV-2 SEMI-QUANT TOTAL AB Routine 11/26/2024 9:52 AM EDT Pericardial effusion MAMMO DIAGNOSTIC BILATERAL W CAD Routine 11/23/2024 12:55 PM EDT Abnormal mammogram DEXA BONE DENSITY AXIAL Routine 09/01/2023 10:45 AM EDT Postmenopausal status LIQUID-BASED PAP SMEAR WITH HPV GENOTYPING IF ASCUS, [facility] (LATRICIA,COR,[facility]AD) Routine 04/12/2023 9:43 AM EST Women's annual routine gynecological examination from Last 3 Months or Most Recently Relevant to Health Maintenance Results * HOLTER MONITOR >7 DAYS UP TO 15 DAYS HOOK-UP & INTERP (12/19/2024 11:40 AM EDT) Heart rate (average) 73 CV SUBSTITUTED RESULTING AGENCY Heart rate minimum 56 CV SUBSTITUTED RESULTING AGENCY Heart rate maximum 124 CV SUBSTITUTED RESULTING AGENCY Anatomical Region Laterality Modality Ultrasound Narrative 01/10/2025 5:21 PM EDT A relatively benign monitor study. Occasional nonsustained SVT. No sustained episodes. No pauses. See raw data for further information. Patient events were unassociated with arrhythmia. Study Description Monitor placed on patient by BEBETO AVELAR MA on 12/19/2024 at 13:00 EDT. Instructions were provided to patient on use of holter monitor and duration of monitoring. The monitor was scanned on 01/10/2025. The patient was monitored for 13 days 23 hours and 8 minutes. Indications for this exam include palpitations. Average HR: 73. Min HR: 56. Max HR: 124. Study Impressions A relatively benign monitor study. Occasional nonsustained SVT. No sustained episodes. No pauses. See raw data for further information. Patient events were unassociated with arrhythmia. us Zo Pineda MD CV CARDI[facility] SERVICES ORDERABL ES Final Result * SARS-CoV-2 Low Ab Dilution (11/26/2024 9:52 AM EDT) SARS-COV-2 SPIKE AB DILUTION 12,228 Negative<0 .8 U/mL [facility] 11/26/2024 9:52 AM EDT 11/26/2024 Comment:Blood Release to [facility] (AMBULATORY) - 11/29/2024 1:07 PM EDT Performed at: [address] [place] [id number] Commissioner: Wilver Sahu MD, Phone: [phone] Zo Pineda MD LAB BLOOD ORDERABLES Final R esult [facility] (AMBULATORY) [address] [place] [address], [facility] [address] [place] [address], * SARS-CoV-2 Semi-Quant Total Ab (11/26/2024 9:52 AM EDT) [facility] SARS-CoV-2 Semi-Quant Ab See Dilution Negative< 0.8 U/mL [facility] SARS-COV-2 SPIKE AB INTERP Positive [facility] Comment: Antibodies against the SARS-CoV-2 spike protein receptor binding domain (RBD) were detected. It is yet undetermined what level of antibody to SARS-CoV-2 spike protein correlates to immunity against developing symptomatic SARS-CoV-2 disease. Studies are underway to measure the quantitative levels of specific SARS-CoV-2 antibodies following vaccination. Such studies will provide valuable insights into the correlation between protection from vaccination and antibody levels. [facility] [employer] [id number] S Blood Structure of left upper limb / Unknown 11/26/2024 9:52 AM EDT 11/26/2024 Comment:Blood Release to [facility] (AMBULATORY) - 11/29/2024 1:07 PM EDT Test(s) [id number] Semi-Quant Low Ab; [id number]- SARS-CoV-2 Low Ab Dilution has not been FDA cleared or approved. This test has been authorized by FDA under an Emergency Use Authorization (EUA). This test is only authorized for the duration of the declaration that circumstances exist justifying the authorization of emergency use of in vitro diagnostics for detection and/or diagnosis of COVID-19 under Section 564(b)(1) of the Act, 21 U.S.C. 360bbb-3(b)(1), unless the authorization is terminated or revoked sooner. This test has been authorized only for detecting the presence of antibodies against SARS-CoV-2, not for any other viruses or pathogens. Performed at: - [id number] Commissioner: Wilver Sahu MD, Phone: [phone] Zo Pineda MD LAB BLOOD ORDERABLES Final R esult Performing Organization Address [facility]/ZIP Co de Phone Number [facility] (AMBULATORY) [address] [place] [address], [facility] [address] [place] [address], * (ABNORMAL) Lipid Panel (11/26/2024 9:52 AM EDT) Total Cholesterol 228(H) 100 - 199 mg/dL [facility] Triglycerides 160(H) 0 - 149 mg/dL [facility] HDL Cholesterol 59 >39 mg/dL [facility] VLDL Cholesterol Carloz 28 5 - 40 mg/dL [facility] LDL Chol Calc (NIH) 141(H) 0 - 99 mg/dL [facility] 11/26/2024 9:52 AM EDT 11/26/2024 Comment:Blood Release to deepa Roberts [facility] (AMBULATORY) - 11/29/2024 1:07 PM EDT Performed at: - [address] [id number] [address] Commissioner: Vince Danielle PhD, Phone: [phone] Zo Pineda MD LAB BLOOD ORDERABLES Final R esult Performing Organization Address City/[facility]/ZIP Co de Phone Number [facility] (AMBULATORY) [address] [place] [address], [facility] [address] [place] [address], * Mammo Diagnostic Bilateral With CAD (11/23/2024 12:55 PM EDT) Anatomical Region Laterality Modality Breast Bilateral Mammography 11/23/2024 12:5 9 PM EDT Impressions 11/23/2024 1:06 PM EDT Stable glandular pattern is considered benign. ACR BI-RADS CATEGORY: 2, BENIGN RECOMMENDATION: Patient may return to routine annual screening mammography. CAD was utilized. The standard false-negative rate of mammography is between 10% and 25%. Complex patterns or increased breast density will markedly elevate the false-negative rate of mammography. A letter, in lay terminology, with the results of this exam was given to the patient at the time of the visit. 11/23/2024 1:06 PM by Sarah Beth Aldrich MD on Narrative 11/23/2024 1:06 PM EDT BILATERAL DIGITAL DIAGNOSTIC MAMMOGRAM CLINICAL HISTORY: Bilateral 6-month follow-up for areas of asymmetry in the left lateral, medial inferior breast as well as the right lower inner quadrant. TECHNIQUE: 2D CC, MLO views bilaterally. COMPARISON: Prior comparisons extending to 2021. MAMMOGRAM FINDINGS: There are scattered fibroglandular densities. Glandular pattern is stable in both breasts with no worrisome masses, areas of distortion or suspicious microcalcifications. Sarah Beth Aldrich MD [facility] MAMMOGRAPHY ORDERABLES Final Result * DEXA Bone Density Axial (09/01/2023 10:45 AM EDT) Anatomical Region Laterality Modality Wrist, Hip, L-spine N/A Bone Density Narrative 10/04/2023 2:51 PM EDT Bone Density Scan Findings Consistent with Normal Would recommend Vitamin D and Weight Bearing Exercises Follow Up Repeat Study in 3-5 Years Alexandra Yanez MD Alexandra Yanez MD [facility] DXA ORDERABLES Final Result * LIQUID-BASED PAP SMEAR WITH HPV GENOTYPING IF ASCUS ([facility]) (04/12/2023 9:43 AM EST) Reference Lab Report [facility] [address] [place] [address] or [phone] Randell Lopez M.D., Termite Treater PATIENT NAME LABORATORY NO[facility] [address]. [id number] AGE SEX SSN CLIENT REF # [facility] [id number] F [id number] [id number] REQUESTING Stephanie [place] [address] ALEXANDRA YANEZ DATE COLLECTED DATE RECEIVED DATE REPORTED 04/12/2023 04/12/2023 04/14/2023 ThinPrep Pap with Cytyc Imaging DIAGNOSIS: Negative for intraepithelial lesion or malignancy Multiple factors can influence accuracy of Pap tests; therefore, screening at regular intervals is necessary for early cancer detection. SPECIMEN ADEQUACY: SATISFACTORY FOR EVALUATION Transformation zone is present. SOURCE OF SPECIMEN: CERVICAL/ENDOCERV ICAL SLIDES: 1 CLINICAL HISTORY: Women's annual routine gynecological examination Post Menopausal, HRT, Bleeding ION IMPLANT MACHINE OPERATOR: BEATRIZ NOBLES (ASCP) CPT CODES: [id number] 04/14/2023 8:49 AM EST [facility] ThinPrep Vial Cervix uteri structure / Unknown Collection / Unknown 04/12/2023 9:43 AM EST 04/12/2023 9:43 AM EST Alexandra Yanez MD PATHOLOGY/CYTOLOGY ORDERABLES F inal Result [facility]
[address] [place] [address], from Last 3 Months or Most Recently Relevant to Health Maintenance Insurance MEDICARE A & B [facility] Care Teams Airborne Weapons Technical Manager Relationship Specialty Start Date End Date Annelise Mcnair APRN [address] [place] [address] PCP - General Family Medicine 03/14/23
--- OUTSIDE RECORDS SUMMARY | 2025-02-25 12:43 | XMS_ITS | Encounter Summary ---
Author Organization [facility] Address [address] [place] [address] Care Team Providers Care Electric Refrigerator Preparer Name Role Phone Annelise Mcnair APRN Primary Care Provider [phone] Reason for Visit * Reason Onset Date Comments Med Refill 02/10/2024 Encounter Details Date Type Department Care Team (Late st Contact Info) Description 02/10/2024 Refill [facility] [address] [place] [phone] Annelise Mcnair APRN [address] [place] [address] Social History Tobacco Use Types Packs/Day Years Used Date Smoking Tobacco: Never Passive Smoke Exposure: Never Smokeless Tobacco: Never Alcohol Use Standard Drinks/Week Comments Yes 0 (1 standard drink = 0.6 oz pur e alcohol) Socially PHQ-2 Answer Date Recorded Retired PHQ-9: Brief Depression Severity Measure Score 10 03/14/2023 PHQ-2 Answer Date Recorded Retired PHQ-9: Brief Depression Severity Measure Score 0 10/21/2023 Comments No Sex and Gender Information Value Date Recorded Sex Assigned at Female 09/07/2024 9:53 AM EDT Legal Sex Female 4:26 PM EDT Gender Identity Not on file Sexual Orientation Straight 09/07/2024 9: 53 AM EDT documented as of this encounter Miscellaneous Notes * Telephone Encounter - Lisa Foster RegSched Rep - 02/10/2024 3:13 PM EDT Caller: TaylerEne Relationship: Self Best call back number: [phone] Requested Prescriptions: Requested Prescriptions Pending Prescriptions Disp Refills Progesterone (PROMETRIUM) 100 MG capsule 20 capsule Sig: Take 2 capsules by mouth Daily. Pharmacy where request should be sent: [facility] [address] - [phone] [facility] [phone] FX Last office visit with prescribing clinician: 02/06/2024 Last telemedicine visit with prescribing clinician: Visit date not found Next office visit with prescribing clinician: 03/07/2024 Additional details provided by patient: PATIENT STATED THAT SHE WAS TO GET A VAGINAL CREAM CALLED INTO THE PHARMACY WELL BUT IS NOT SURE OF THE NAME OF THE CREAM Does the patient have less than a 3 day supply: [x] Yes [] No Would you like a call back once the refill request has been completed: [] Yes [x] No If the office needs to give you a call back, can they leave a voicemail: [] Yes [x] No Raisa Schmidt Rep 02/10/24 15:14 EDT documented in this encounter Plan of Treatment Upcoming Encounters Date Type Department Care Team (Late st Contact Info) Description 03/04/2025 9:30 AM EDT Ancillary Procedure [facility] [address] [place] [address] 03/04/2025 10:30 AM EDT Office Visit [facility] [address] [place] [address] Zo Pineda MD [address] [place] [address] 03/11/2025 9:45 AM EDT Office Visit [facility] [address] [place] [phone] Annelise Mcnair APRN [address] [place] [address] 03/14/2025 11:45 AM EDT Appointment [facility] [address] [place] [address] [address] [place] [address] Pita Oneill documented as of this encounter Visit Diagnoses Not on filedocumented in this encounter Care Teams Electric Refrigerator Preparer Relationship Specialty Start Date End Date Annelise Mcnair APRN [address] [place] [address] PCP - General Family Medicine 03/14/23 documented as of this encounter
--- OUTSIDE RECORDS SUMMARY | 2025-02-25 12:44 | XMS_ITS | Encounter Summary ---
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 - [employer] Social History Tobacco Use Types Packs/Day Years Used Date Smoking Tobacco: Never Assessed Comments Unknown Sex and Gender Information Value [...] [facility] [address] [place] [address] 03/04/2025 10:30 AM EDT Office Visit [facility] [address] [place] [address] Zo Pineda MD [address] [place] [address] 03/11/2025 9:45 AM EDT Office Visit [facility] PRIMARY CARE [address] [place] [phone] Annelise Mcnair APRN [address] [place] [address] 03/14/2025 11:45 AM EDT Appointment [facility] [address] [place] [address] [address] [place] [address] Pita Oneill documented as of this encounter Visit Diagnoses Not on filedocumented in this encounter Care Teams Size Stamper Relationship Specialty Start Date End Date Annelise Mcnair APRN [address] [place] [address] PCP - General Family Medicine 03/14/23 documented as of this encounter
--- OUTSIDE RECORDS SUMMARY | 2025-02-25 12:44 | XMS_ITS | Encounter Summary ---
Author Organization [facility] Address [address] [place] [address] Care Team Providers Care Real Estate Paralegal Name Role Phone Annelise Mcnair APRN Primary Care Provider Encounter Details Date Type Department Care Team (Late st Contact Info) Description 02/18/2025 Telephone [facility] PRIMARY [facility]ARE [address] [place] [phone] Annelise Mcnair APRN [address] [place] [address] Social History Tobacco Use Types [...] Telephone Encounter - Shasta Freeman MA - 02/18/2025 12:19 PM EDT Patient called stating that she needs a refill on medicine and rx sent to [facility] Rx sent documented in this encounter Plan of Treatment Upcoming Encounters Date Type Department Care Team (Late st Contact Info) Description 03/04/2025 9:30 AM EDT Ancillary Procedure [facility] [place] [address] 03/04/2025 10:30 AM EDT Office Visit [facility] CL[facility]IC [place] [address] Zo Pineda MD [address] [place] [address] [place] [address] 03/11/2025 9:45 AM EDT Office Visit [facility]IMARY [facility] [address] [address] [place] [address] Annelise Mcnair APRN [address] [place] [address] 03/14/2025 11:45 AM EDT Appointment [facility] [address] [place] [address] [address] [place] [address] Pita Oneill documented as of this encounter Visit Diagnoses Not on filedocumented in this encounter Care Teams Real Estate Paralegal Relationship Specialty Start Date End Date Annelise Mcnair APRN [address] [place] [address] PCP - General Family Medicine 03/14/23 documented as of this encounter
--- OUTSIDE RECORDS SUMMARY | 2025-02-25 12:44 | XMS_ITS | Encounter Summary ---
[facility] Address [address] [place] [address] Care Team Providers Care Garage Construction Equipment Mechanic Name Role Phone Annelise Mcnair APRN Primary Care Provider Encounter Details Date Type Department Care Team (Latest Contact Info) Description 12/27/2024 Travel Social History Tobacco Use Types Packs/Day Years [...] [facility] [address] [place] [address] 03/04/2025 10:30 AM EDT Office Visit [facility] CARDI[facility] [address] [place] [address] Zo Pineda MD [address] [address] 03/11/2025 9:45 AM EDT Office Visit [facility] PRIMARY [facility] [address] [place] [address] [place] [address] Annelise Mcnair, TUBER HELPER [address] [place], [place] [phone] 03/14/2025 11:45 AM EDT Appointment [facility] [address] [place] [address] [address] [place] [phone] Pita Oneill documented as of this encounter Visit Diagnoses Not on filedocumented in this encounter Care Teams Garage Construction Equipment Mechanic Relationship Specialty Start Date End Date Annelise Mcnair, TUBER HELPER [address] [place] [address] PCP - General Family Medicine 03/14/23 documented as of this encounter
--- OUTSIDE RECORDS SUMMARY | 2025-02-25 12:44 | XMS_ITS | Encounter Summary ---
Author Organization [facility] Address [address] [place] [address] Care Team Providers Care Weld Fitter Name Role Phone Annelise Mcnair APRN Primary Care Provider Encounter Details Date Type Department Care Team (Latest Contact Info) Description 01/31/2025 Travel Social History Tobacco Use Types Packs/Day [...] Description 03/04/2025 9:30 AM EDT Ancillary Procedure [facility] [address] [place] [address] 03/04/2025 10:30 AM EDT Office Visit [facility] CARDI[facility] [address] [place] [phone] Zo Pineda MD [address] [place] [address] 03/11/2025 9:45 AM EDT Office Visit [facility] PRIMARY [facility]ARE [address] [place] [address] [place] [address] Annelise Mcnair APRN [address] [place] [address] 03/14/2025 11:45 AM EDT Appointment [facility] [address] [place] [address] [address] [place] [address] Pita Oneill documented as of this encounter Visit Diagnoses Not on filedocumented in this encounter Care Teams Weld Fitter Relationship Specialty Start Date End Date Annelise Mcnair APRN [address] [place] [address] PCP - General Family Medicine 03/14/23 documented as of this encounter
--- OUTSIDE RECORDS SUMMARY | 2025-02-25 12:44 | XMS_ITS | Encounter Summary ---
Author Organization [facility] Address [address] [place] [address] Care Team Providers Care Helper Metal Hanging Name Role Phone Annelise Mcnair APRN Primary Care Provider Encounter Details Date Type Department Care Team (Late st Contact Info) Description 12/28/2024 Telephone [facility] PRIMARY [facility] [address] [place] [phone] Annelise Mcanir APRN [address] [place] [address] Social History Tobacco Use Types [...] Telephone Encounter - Shasta Freeman MA - 12/28/2024 10:46 AM EDT Rx sent per Annelise documented in this encounter Plan of Treatment Upcoming Encounters Date Type Department Care Team (Late st Contact Info) Description 03/04/2025 9:30 AM EDT Ancillary Procedure [facility] [place] [address] 03/04/2025 10:30 AM EDT Office Visit [facility] [place] [address] Zo Pineda MD [address] [place] [address] [place] [address] 03/11/2025 9:45 AM EDT Office Visit [facility] PRIMARY [facility] [address] [place] [address] [place] [address] Annelise Mcnair APRN [address] [place] [address] 03/14/2025 11:45 AM EDT Appointment [facility] [address] [place] [address] [address] [place] [address] Pita Oneill documented as of this encounter Visit Diagnoses Not on filedocumented in this encounter Care Teams Helper Metal Hanging Relationship Specialty Start Date End Date Annelise Mcnair, LORA [address] [place] [address] PCP - General Family Medicine 03/14/23 documented as of this encounter
[2025-02-25 14:05] LABS: 25-OH Vitamin D, Total 107 ng/mL (30-100)
[2025-02-25 15:37] LABS: Vitamin B12 939 pg/mL (239-931)
[2025-02-25 19:07] LABS: Iron 85 ug/dL (37-170)
[2025-02-25 19:16] LABS: Total Iron Binding Capacity 330 ug/dL (265-497)
[2025-02-25 19:44] LABS: Ferritin 21.3 ng/ml (11.1-264)
== END 2025-02-25 23:59 | disposition home or self-care (01) ==
LOC: LAB 12:40
PROVIDERS: PCP Nurse Practitioner; Visit Provider Nurse Practitioner Family
DX: K92.1 Melena (principal); E55.9 Vitamin D deficiency, unspecified; R53.83 Other fatigue
CPT/HCPCS: 36415; 82306; 82607; 82728; 83540; 83550